=== PATIENT | female | born 1945 | race Caucasian/White ===

== ENCOUNTER 2016-05-02 14:41 | Observation (INO) ==
--- NOTE | 2016-05-02 15:48 | Emergency Department Note ---
Disposition Clinical Impression: History of breast cancer, Abnormal chest x-ray, History of permanent cardiac pacemaker placement, Obesity, Frail elderly, Dyspnea on exertion, History of asthma, Elevated blood pressure reading, UTI (urinary tract infection) Disposition: Admitted As Inpatient Referrals: Diego Rangel CNP [Primary Care Provider] - Forms: ED Satisfaction Letter General Adult HPI - General Chief complaint: ED Shortness of Breath/Dyspnea Stated complaint: SIRIA, weakness Time Seen by Provider: 05/02/16 14:45 Source: patient Limitations: no limitations - History of Present Illness HPI Narrative: 71-year-old female reports to the emergency department complaining of dyspnea on exertion. She is being evaluated by her gluing machine adjuster who she states tells her that her shortness of breath has nothing to do with her lungs. He has a history of asthma. Patient does not describe wheezing or upper respiratory symptoms. She had an outpatient echocardiogram a few days ago which shows slight diastolic dysfunction with an EF of 65%. The patient denies any previous coronary artery disease, she has a history of pacemaker placement, a remote stress test was reportedly negative. The patient does have a history of DVT but is currently not anticoagulated. There is no history of previous PE she is a breast cancer patient. The patient denies diabetes or hypercholesterolemia or hypertension. She is a nonsmoker. She describes recurrent dyspnea on exertion. There is no history of leg swelling or pain or syncope. She has no history of CHF treatment or therapy she does not take diuretic medication. She denies any significant anxiety. Acute back pain fall or injury. The patient reports she thinks she might have a urinary tract infection. There is no history of flank or back pain. Onset (ago): day(s) Pain Scale: 0 - Related Data Home Medications Medication Instructions Recorded Confirmed Montelukast [Singulair] 10 mg PO HS 10/17/14 10/04/15 Diltiazem CD (24hr) [Cardizem CD] 120 mg PO DAILY 03/11/15 10/04/15 Albuterol Sulfate [Ventolin Hfa] 18 gm IH Q6H PRN 05/04/15 10/04/15 Fluticasone/Salmeterol [Advair 1 each IH BID 08/08/15 10/04/15 250-50 Diskus] Levothyroxine [Synthroid] 25 mcg PO DAILY 10/04/15 10/04/15 Nitrofurantoin (BID) [Macrobid] 100 mg PO BID 12/14/15 12/14/15 Allergies Allergy/AdvReac Type Severity Reaction Status Date / Time cephalexin [From Keflex] Allergy Hives Verified 03/01/16 07:34 codeine Allergy Hives Verified 03/01/16 07:34 Sulfa (Sulfonamide Allergy Hives Verified 03/01/16 07:34 Antibiotics) levofloxacin [From Levaquin] AdvReac Nausea Verified 03/01/16 07:34 nitrofurantoin AdvReac Nausea Unverified 03/01/16 07:34 [From Macrobid] All systems ED: reviewed and negative except as stated. Past Medical History - Past Medical History Medical history: Reports: arthritis, asthma, kidney stones, thyroid disease, other Surgical history: Reports: pacemaker/AICD Psychiatric history: Reports: no psych history STITCHING MACHINE OPERATOR history: Reports: no STITCHING MACHINE OPERATOR history - Social History Smoking Status: Never smoker Smokeless Tobacco Status: No Alcohol use: Reports: none Drug use: Reports: none Physical Exam - General Limitations: no limitations General appearance: alert, in no apparent distress - Head Head exam: atraumatic, normocephalic, normal inspection - Eye Eye exam: Present: normal appearance, PERRL, EOMI - ENT ENT exam: normal exam, normal oropharynx, mucous membranes moist, TM's normal bilaterally, normal external ear exam - Neck Neck exam: Present: normal inspection, full ROM, trachea midline - Chest Chest inspection: Present: symmetric chest wall rise. Absent: tenderness - Respiratory Respiratory exam: Present: normal lung sounds bilaterally. Absent: respiratory distress - Abdominal Exam Abdominal exam: Present: soft, Non-Tender. Absent: tenderness, distention, guarding, rebound, rigidity, normal bowel sounds, pulsatile mass - Extremities Exam Extremities exam: Present: normal inspection, full ROM, normal capillary refill. Absent: tenderness, pedal edema, joint swelling, calf tenderness - Expanded Lower Extremity Exam Lower leg exam: Absent: Homans' sign Neurovascular/Tendon exam: Absent: motor deficit, sensory deficit, tendon deficit, extremity cold to touch, pallor - Back Exam Back exam: Present: normal inspection, full ROM. Absent: tenderness, CVA tenderness (R), CVA tenderness (L), vertebral tenderness - Neurological Exam Neurological exam: Present: alert, oriented X3, CN II-XII intact. Absent: motor sensory deficit - Psychiatric Psychiatric exam: Present: normal affect, normal mood - Skin Skin exam: Present: warm, dry, intact, normal color. Absent: rash, cyanosis, diaphoresis, erythema, pallor, mottled Course Vital Signs Temperature 98 F 05/02/16 14:44 Pulse Rate 68 05/02/16 14:44 Respiratory Rate 18 05/02/16 14:44 Blood Pressure 146/89 05/02/16 14:44 O2 Sat by Pulse Oximetry 98 05/02/16 14:44 Temperature 98 F 05/02/16 14:44 Pulse Rate 79 05/02/16 18:30 Respiratory Rate 18 05/02/16 18:30 Blood Pressure 135/77 05/02/16 18:30 O2 Sat by Pulse Oximetry 100 05/02/16 18:30 Oxygen Delivery Oxygen Delivery Room Air Medical Decision Making - MDM Narrative Medical decision making narrative: He patient is elderly, somewhat obese, and has developed progressive dyspnea on exertion over the last 2 weeks or so per her history and per her male companions history. The patient states she gets incredibly short of breath when walking even short distances. The patient's echocardiogram was unrevealing , EKG today is negative, troponin negative, d-dimer elevated, she has a history of breast cancer, CTA negative for acute disease. The patient is not wheezing she states her gluing machine adjuster reports that her dyspnea is not from her lungs. She has not had a stress test for several years. She does not relate a history of hyperlipidemia or hypertension or diabetes or previous CAD. But she does give a history of a fairly rapid progressive decline in her exercise tolerance. She ate she has not been anxious. Based on her symptomatology which seems to be significant, and there is a consideration for potential anginal equivalent. I have consulted the hospitalist on-call. The patient was given an aspirin. It may be prudent to observe the patient and perhaps evaluate her coronary flow status. The patient is agreeable. - Lab Data Lab results reviewed: Yes I reviewed the patient's lab results. Result diagrams: 05/02/16 16:46 05/02/16 16:46 Lab Results 05/02/16 05/02/16 05/02/16 Range/Units 16:46 16:46 16:46 WBC 5.0 (4.3-11.1) K/mcL RBC 4.52 (3.82-4.97) M/mcL Hgb 13.5 (11.5-15.4) g/dL Hct 41.4 (35.3-44.9) % MCV 91.6 (83.0-100.0) fL MCH 29.9 (28.0-33.3) pg MCHC 32.6 (31.6-35.5) g/dL RDW 13.3 (11.5-14.5) % Plt Count 293 (140-400) K/mcL MPV 9.2 L (9.4-12.4) fL Immature Gran % 0.2 (0-4) % Seg Neutrophils % 46.0 % Lymphocytes % 40.0 % Monocytes % 9.4 % Eosinophils % 3.6 % Basophils % 0.8 % Neutrophils # 2.3 (1.6-8.9) K/mcL Lymphocytes # 2.0 (0.6-4.6) K/mcL Monocytes # 0.5 (0.0-1.3) K/mcL Eosinophils # 0.2 (0.0-0.6) K/mcL Basophils # 0.0 (0.0-0.2) K/mcL PT (9.4-12.1) Seconds INR APTT (26.0-36.0) Seconds D-Dimer (0-500) ng/mLFEU Sodium 141 (136-145) mEq/L Potassium 4.5 (3.5-4.5) mEq/L Chloride 111 H (98-109) mEq/L Carbon Dioxide 22 (19-29) mEq/L BUN 13 (7-20) mg/dL Creatinine 0.87 (0.57-1.11) mg/dL Est GFR ( Amer) > 60 (> 60) Est GFR (Non-Af Amer) > 60 (> 60) BUN/Creatinine Ratio 15 (6-26) Glucose 89 (70-99) mg/dL Calculated Osmolality 292 (280-300) Lactic Acid (0.5-2.2) mmol/L Calcium 9.5 (8.6-10.8) mg/dL Total Bilirubin 0.5 (0.2-1.2) mg/dL Direct Bilirubin 0.2 (0.0-0.5) mg/dL Indirect Bilirubin 0.3 (0.0-1.2) mg/dL AST 15 (5-34) Units/L ALT 9 (0-55) Units/L Alkaline Phosphatase 69 (38-126) Units/L Troponin I 0.00 (0-0.03) ng/mL B-Natriuretic Peptide (0-100) pg/mL Serum Total Protein 6.6 (6.0-8.3) g/dL Albumin 3.6 (3.5-5.0) g/dL Globulin 3.0 (2.4-3.5) g/dL Albumin/Globulin Ratio 1.2 (1.1-2.2) Urine Color (Yellow) Urine Clarity (Clear) Urine pH (5.0-8.0) pH Units Ur Specific Corona (1.010-1.025) Urine Protein (Neg-Trace) mg/dL Urine Glucose (UA) (Normal) mg/dL Urine Ketones (Negative) mg/dL Urine Blood (Negative) Urine Nitrite (Negative) Urine Bilirubin (Negative) Urine Urobilinogen (Normal) mg/dL Ur Leukocyte Esterase (Negative) Urine Microscopic RBC (0-3) per hpf Urine Microscopic WBC (0-3) per hpf Ur Squamous Epith Cells (None-Few) per lpf Urine Bacteria (None-Few) per hpf Hyaline Casts (None-Few) per lpf Ur Culture Indicated? (NO) 05/02/16 05/02/16 05/02/16 Range/Units 16:46 16:46 16:46 WBC (4.3-11.1) K/mcL RBC (3.82-4.97) M/mcL Hgb (11.5-15.4) g/dL Hct (35.3-44.9) % MCV (83.0-100.0) fL MCH (28.0-33.3) pg MCHC (31.6-35.5) g/dL RDW (11.5-14.5) % Plt Count (140-400) K/mcL MPV (9.4-12.4) fL Immature Gran % (0-4) % Seg Neutrophils % % Lymphocytes % % Monocytes % % Eosinophils % % Basophils % % Neutrophils # (1.6-8.9) K/mcL Lymphocytes # (0.6-4.6) K/mcL Monocytes # (0.0-1.3) K/mcL Eosinophils # (0.0-0.6) K/mcL Basophils # (0.0-0.2) K/mcL PT 10.7 (9.4-12.1) Seconds INR 1.0 APTT 28.1 (26.0-36.0) Seconds D-Dimer 981 H (0-500) ng/mLFEU Sodium (136-145) mEq/L Potassium (3.5-4.5) mEq/L Chloride (98-109) mEq/L Carbon Dioxide (19-29) mEq/L BUN (7-20) mg/dL Creatinine (0.57-1.11) mg/dL Est GFR ( Amer) (> 60) Est GFR (Non-Af Amer) (> 60) BUN/Creatinine Ratio (6-26) Glucose (70-99) mg/dL Calculated Osmolality (280-300) Lactic Acid 1.2 (0.5-2.2) mmol/L Calcium (8.6-10.8) mg/dL Total Bilirubin (0.2-1.2) mg/dL Direct Bilirubin (0.0-0.5) mg/dL Indirect Bilirubin (0.0-1.2) mg/dL AST (5-34) Units/L ALT (0-55) Units/L Alkaline Phosphatase (38-126) Units/L Troponin I (0-0.03) ng/mL B-Natriuretic Peptide 23 (0-100) pg/mL Serum Total Protein (6.0-8.3) g/dL Albumin (3.5-5.0) g/dL Globulin (2.4-3.5) g/dL Albumin/Globulin Ratio (1.1-2.2) Urine Color (Yellow) Urine Clarity (Clear) Urine pH (5.0-8.0) pH Units Ur Specific Corona (1.010-1.025) Urine Protein (Neg-Trace) mg/dL Urine Glucose (UA) (Normal) mg/dL Urine Ketones (Negative) mg/dL Urine Blood (Negative) Urine Nitrite (Negative) Urine Bilirubin (Negative) Urine Urobilinogen (Normal) mg/dL Ur Leukocyte Esterase (Negative) Urine Microscopic RBC (0-3) per hpf Urine Microscopic WBC (0-3) per hpf Ur Squamous Epith Cells (None-Few) per lpf Urine Bacteria (None-Few) per hpf Hyaline Casts (None-Few) per lpf Ur Culture Indicated? (NO) 05/02/16 Range/Units 17:00 WBC (4.3-11.1) K/mcL RBC (3.82-4.97) M/mcL Hgb (11.5-15.4) g/dL Hct (35.3-44.9) % MCV (83.0-100.0) fL MCH (28.0-33.3) pg MCHC (31.6-35.5) g/dL RDW (11.5-14.5) % Plt Count (140-400) K/mcL MPV (9.4-12.4) fL Immature Gran % (0-4) % Seg Neutrophils % % Lymphocytes % % Monocytes % % Eosinophils % % Basophils % % Neutrophils # (1.6-8.9) K/mcL Lymphocytes # (0.6-4.6) K/mcL Monocytes # (0.0-1.3) K/mcL Eosinophils # (0.0-0.6) K/mcL Basophils # (0.0-0.2) K/mcL PT (9.4-12.1) Seconds INR APTT (26.0-36.0) Seconds D-Dimer (0-500) ng/mLFEU Sodium (136-145) mEq/L Potassium (3.5-4.5) mEq/L Chloride (98-109) mEq/L Carbon Dioxide (19-29) mEq/L BUN (7-20) mg/dL Creatinine (0.57-1.11) mg/dL Est GFR ( Amer) (> 60) Est GFR (Non-Af Amer) (> 60) BUN/Creatinine Ratio (6-26) Glucose (70-99) mg/dL Calculated Osmolality (280-300) Lactic Acid (0.5-2.2) mmol/L Calcium (8.6-10.8) mg/dL Total Bilirubin (0.2-1.2) mg/dL Direct Bilirubin (0.0-0.5) mg/dL Indirect Bilirubin (0.0-1.2) mg/dL AST (5-34) Units/L ALT (0-55) Units/L Alkaline Phosphatase (38-126) Units/L Troponin I (0-0.03) ng/mL B-Natriuretic Peptide (0-100) pg/mL Serum Total Protein (6.0-8.3) g/dL Albumin (3.5-5.0) g/dL Globulin (2.4-3.5) g/dL Albumin/Globulin Ratio (1.1-2.2) Urine Color Yellow (Yellow) Urine Clarity Clear (Clear) Urine pH 7.5 (5.0-8.0) pH Units Ur Specific Corona 1.012 (1.010-1.025) Urine Protein Negative (Neg-Trace) mg/dL Urine Glucose (UA) Normal (Normal) mg/dL Urine Ketones Negative (Negative) mg/dL Urine Blood Negative (Negative) Urine Nitrite Positive A (Negative) Urine Bilirubin Negative (Negative) Urine Urobilinogen Normal (Normal) mg/dL Ur Leukocyte Esterase Large H (Negative) Urine Microscopic RBC 5-15 H (0-3) per hpf Urine Microscopic WBC 30-50 H (0-3) per hpf Ur Squamous Epith Cells Moderate H (None-Few) per lpf Urine Bacteria Many H (None-Few) per hpf Hyaline Casts None Seen (None-Few) per lpf Ur Culture Indicated? YES A (NO) - Radiology Data Radiology results reviewed: Yes I reviewed the patient's radiology results.
[2016-05-02 16:53] LABS: Basophils % 0.8 %; Eosinophils # 0.2 K/mcL (0.0-0.6); Eosinophils % 3.6 %; Hematocrit 41.4 % (35.3-44.9); Hemoglobin 13.5 g/dL (11.5-15.4); Immature Granulocytes % 0.2 % (0-4); Mean Corpuscular HGB Conc 32.6 g/dL (31.6-35.5); Mean Corpuscular Hemoglobin 29.9 pg (28.0-33.3); Mean Corpuscular Volume 91.6 fL (83.0-100.0); Mean Platelet Volume 9.2 fL (9.4-12.4); Monocytes # 0.5 K/mcL (0.0-1.3); Monocytes % 9.4 %; Neutrophils # 2.3 K/mcL (1.6-8.9); Platelet Count 293 K/mcL (140-400); Red Blood Count 4.52 M/mcL (3.82-4.97); Red Cell Distribution Width 13.3 % (11.5-14.5)
[2016-05-02 17:00] LABS: Prothrombin Time 10.7 Seconds (9.4-12.1)
[2016-05-02 17:02] LABS: Activated Partial Thrombo Time 28.1 Seconds (26.0-36.0)
[2016-05-02 17:11] LABS: Alanine Aminotransferase 9 Units/L (0-55); Albumin 3.6 g/dL (3.5-5.0); Albumin/Globulin Ratio 1.2 (1.1-2.2); Alkaline Phosphatase 69 Units/L (38-126); Aspartate Amino Transferase 15 Units/L (5-34); BUN/Creatinine Ratio 15 (6-26); Bilirubin,Direct 0.2 mg/dL (0.0-0.5); Bilirubin,Indirect 0.3 mg/dL (0.0-1.2); Bilirubin,Total 0.5 mg/dL (0.2-1.2); Blood Urea Nitrogen 13 mg/dL (7-20); Calcium 9.5 mg/dL (8.6-10.8); Carbon Dioxide 22 mEq/L (19-29); Chloride 111 mEq/L (98-109); Glucose 89 mg/dL (70-99); Osmolality,Calculated 292 (280-300); Potassium 4.5 mEq/L (3.5-4.5); Sodium 141 mEq/L (136-145); Total Protein 6.6 g/dL (6.0-8.3); eGFR For African Americans > 60 (> 60); eGFR For Non-African Americans > 60 (> 60)
[2016-05-02 17:11] LABS: Bilirubin,Urine Negative (Negative); Blood,Urine Negative (Negative); Clarity,Urine Clear (Clear); Color,Urine Yellow (Yellow); Glucose,Urine (UA) Normal (Normal); Ketones,Urine Negative (Negative); Leukocyte Esterase,Urine Large (Negative); Nitrite,Urine Positive (Negative); PH,Urine 7.5 pH Units (5.0-8.0); Protein,Urine Negative (Neg-Trace); Specific Gravity,Urine 1.012 (1.010-1.025); Urobilinogen,Urine Normal (Normal)
[2016-05-02 17:12] LABS: Bacteria,Urine Many per hpf (None-Few); Hyaline Casts,Urine None Seen per lpf (None-Few); Squamous Epithelial Cell,Urine Moderate per lpf (None-Few); WBC,Urine 30-50 per hpf (0-3)
[2016-05-02] MEDS ORDERED: Aspirin 325 MG TABLET PO ONE (19:47)
[2016-05-02] MEDS ORDERED: Ondansetron 4 MG/2 ML VIAL IVP PRN (22:12)
[2016-05-03 04:14] LABS: Basophils % 0.6 %; Eosinophils # 0.2 K/mcL (0.0-0.6); Eosinophils % 3.4 %; Hematocrit 40.9 % (35.3-44.9); Hemoglobin 13.5 g/dL (11.5-15.4); Lymphocytes # 2.6 K/mcL (0.6-4.6); Lymphocytes % 41.2 %; Mean Corpuscular Hemoglobin 29.7 pg (28.0-33.3); Mean Corpuscular Volume 90.1 fL (83.0-100.0); Mean Platelet Volume 9.6 fL (9.4-12.4); Monocytes # 0.6 K/mcL (0.0-1.3); Monocytes % 9.3 %; Neutrophils # 2.8 K/mcL (1.6-8.9); Platelet Count 284 K/mcL (140-400); Red Blood Count 4.54 M/mcL (3.82-4.97); Red Cell Distribution Width 13.2 % (11.5-14.5); Segmented Neutrophils % 45.5 %
[2016-05-03 04:27] LABS: BUN/Creatinine Ratio 16 (6-26); Blood Urea Nitrogen 12 mg/dL (7-20); Calcium 9.3 mg/dL (8.6-10.8); Carbon Dioxide 19 mEq/L (19-29); Chloride 111 mEq/L (98-109); Glucose 85 mg/dL (70-99); Osmolality,Calculated 287 (280-300); Potassium 3.8 mEq/L (3.5-4.5); Sodium 139 mEq/L (136-145); eGFR For African Americans > 60 (> 60); eGFR For Non-African Americans > 60 (> 60)
--- NOTE | 2016-05-03 06:19 | Internal Med History&Physical ---
Date of Encounter: 05/03/16 Time of Encounter: 05:49 Assessment and Plan (1) Bronchial asthma Current visit: Yes Status: Acute albuterol inhaled as needed Qualifiers: Asthma severity: mild intermittent Asthma complication type: uncomplicated Qualified Code(s): J45.20 - Mild intermittent asthma, uncomplicated (2) Dyspnea on exertion Current visit: Yes Status: Acute possible chest pain equivalet. we will treat accordingly. Monitor on telemetry. TEND TROPONIN> Obtain stress test. (3) DVT prophylaxis Current visit: Yes Status: Acute ncourage ambulation (4) History of breast cancer Current visit: Yes Status: Acute follow-up outpatient with mammogram. (5) History of permanent cardiac pacemaker placement Current visit: Yes Status: Acute Internal Medicine - H&P: HPI Chief complaint: dyspnea on exertion Admitted From: Emergency Dept Plans for Post Hospital Care: Home History of present illness: Ms. Dewey is a 71 year old female with past medical history s for asthma and hypothyroidism [facility] She reports progressive dyspnea on exertion for the last 6 weeks, more severe for the last 2 weeks. She had outpatient workup including echocardiogram and basic labs which were negative. She was evaluated by her child care associate teacher to refer the hospital. She denies associated chest pain.the course has been progressive. a 10 point review of systems was negative except as above family historywas negative for premature nary artery disease Past Med Surg Social Fam HX - Past Medical History Medical history: arthritis, asthma, kidney stones, thyroid disease, other Psychiatric history: no psych history - Past Surgical History Surgical History: pacemaker/AICD - Social History Smoking Status: Never smoker Smokeless Tobacco Status: No Alcohol use: none Drug use: none - Family History Mother Living Status: Still Living Hx Family Cancer: Yes Father Living Status: Age at : 70 Cause of : killed in accident Internal Medicine - H&P: Meds Montelukast [Singulair] 10 mg PO HS 10/17/14 [History] Diltiazem CD (24hr) [Cardizem CD] 120 mg PO DAILY 03/11/15 [History] Albuterol Sulfate [Ventolin Hfa] 18 gm IH Q6H PRN 05/04/15 [History] Fluticasone/Salmeterol [Advair 250-50 Diskus] 1 each IH BID 08/08/15 [History] Levothyroxine [Synthroid] 25 mcg PO DAILY 10/04/15 [History] Allergies cephalexin [From Keflex] Allergy (Verified 03/01/16 07:34) Hives codeine Allergy (Verified 03/01/16 07:34) Hives Sulfa (Sulfonamide Antibiotics) Allergy (Verified 03/01/16 07:34) Hives levofloxacin [From Levaquin] Adverse Reaction (Verified 03/01/16 07:34) Nausea nitrofurantoin [From Macrobid] Adverse Reaction (Verified 05/02/16 19:59) Nausea states it still makes her nauseous All Systems PM: A 10-system review of systems was performed and is negative for pertinent findings except as documented above in the HPI. - Constitutional Vitals: Temp Pulse Resp BP Pulse Ox 97.9 F 62 12 137/75 95 05/03/16 03:23 05/03/16 03:23 05/03/16 03:23 05/03/16 03:23 05/03/16 03:23 General appearance: Present: A&O X 3 - Respiratory Respiratory exam: Present: CTAB. Absent: accessory muscle use, rales, rhonchi, wheezes - Cardiovascular Cardiovascular exam: Present: RRR, +S1, +S2. Absent: diastolic murmur, gallop, rubs, systolic murmur - GI/Abdominal GI/Abdominal exam: Present: normal bowel sounds, soft, no peritoneal signs. Absent: distended, tenderness - Extremities Exam Extremities exam: Present: warm, radial pulses palpable and symetrical. Absent : calf tenderness, cyanotic, pedal edema - Skin Skin exam: Present: dry, intact Internal Med - H&P Results - Labs CBC & Chem 7: 05/03/16 03:51 05/03/16 03:51 Labs: Short CBC 05/03/16 Range/Units 03:51 WBC 6.2 (4.3-11.1) K/mcL Hgb 13.5 (11.5-15.4) g/dL Hct 40.9 (35.3-44.9) % Plt Count 284 (140-400) K/mcL Neutrophils # 2.8 (1.6-8.9) K/mcL BMP 05/03/16 03:51 Sodium 139 Potassium 3.8 Chloride 111 H Carbon Dioxide 19 BUN 12 Creatinine 0.74 Glucose 85 Calcium 9.3 Cardiac Enzymes 05/02/16 05/03/16 Range/Units 22:54 03:51 Troponin I 0.00 0.01 (0-0.03) ng/mL
[2016-05-03] MEDS ORDERED: Regadenoson 0.4 MG/5 ML SYRINGE IVP ONE (06:49)
[2016-05-03] MEDS: Diltiazem CD (24hr) 120 MG CAPSULE PO SCH (09:07)
[2016-05-03] MEDS: Levothyroxine 25 MCG TABLET PO SCH (09:07)
[2016-05-03] MEDS: Piperacillin/Tazobactam 3.375 GM in D5% in Water (Mini-Bag+) 100 ML IVPB SCH ×2 (09:39→17:16)
[2016-05-03] MEDS: Budesonide/Formoterol 80/4.5 MDI IH SCH ×2 (09:51→22:04)
[2016-05-03] MEDS ORDERED: Acetaminophen 325 MG TABLET PO PRN (10:06)
--- NOTE | 2016-05-03 11:15 | Nuclear Medicine Stress Report ---
Regadenoson Nuclear Stress Name: Glenys Dewey Date of Study: 05/03/2016 Date: 1945 Ht: 67.0 in Medical Record#: [id number] Age: 71 Wt: 235.0 lb Gender: Female Order #: [id number] Location: [facility] Room: [facility] Supervising Provider: Suhail Cortes CNP Reading Physician: Gurmeet Mark DO, FACKristal, SUZY ADHIKARI Ordering Physician: China Menon CNP Primary Care Physician: Krysta Rangel CNP Stress Technologist: Salma Blair STEAM TANK OPERATOR, CCT Sail Repair Person: Krysta Shaw Indications: Chest Pain Impression: Pharmacologic stress ECG is negative for ischemia at level of heart rate achieved. Gated EF = 71%. Perfusion imaging was negative for ischemia or infarct. Stress Test Summary: Stress Test Type: Pharmacologic Regadenoson 0.4mg/5ml given IV Baseline Information: Initial Heart Rate: 77 Blood Pressure: 134/84 Stress Information: Test Terminated Due to (primary): As per protocol Maximum Blood Pressure: 128/68 Maximum Heart Rate: 121 Percent Maximum Heart Rate Achieved: 80 Double Product: [id number] METS Reached: 1 Symptoms: Shortness of breath, No chest symptoms Nuclear Summary: SPECT myocardial perfusion imaging using Tc99m Sestamibi given intravenously was performed at rest and following cardiac stress testing. The resting images were obtained following initial dose of 11.3 mCi. Following stress an additional dose of 35.6 mCi was given at peak exercise or 30 seconds post regadenoson infusion. Medication Given: Time Medication Dose Units Route Findings: Stress Note * Resting ECG demonstrated normal sinus rhythm. * No baseline arrhythmias were noted. * Pharmacologic stress ECG is negative for ischemia at level of heart rate achieved. * No arrhythmias were noted during stress. * Patient had no chest pain during stress. Hemodynamic responses * Normal hemodynamic responses to pharmacologic stress. Study Quality * Study quality is average. Gated EF % * Gated EF = 71%. Left Ventricle * The left ventricle is not dilated. * LVEDV = 77 mL. NORMALS * Normal wall motion. * Normal segmental perfusion in stress. Inferior Perfusion Rest * The basal inferolateral segment shows a mild reduction in perfusion. This improves with stress imaging, which is consistent with artifact. TID * No evidence of transient ischemic dilatation. TID ratio * TID ratio = 1.33. Lung Uptake * There is no evidence of increase lung uptake. Updated by Gurmeet Mark DO, FACKristal, ONOFRE, SUZY on 05/03/2016 11:07:41 AM electronically signed on 05/03/2016 11:08:41 AM with status of Final
--- NOTE | 2016-05-03 15:30 | Internal Med Progress Note ---
Date of Encounter: 05/03/16 Time of Encounter: 13:00 - Assessment and plan (1) UTI (urinary tract infection) Current Visit: Yes Status: Acute Assessment and plan: In review of her chart, patient has had several urinary tract infections over the past year. They are all Escherichia coli except for one Enterococcus faecalis and there becoming more and more resistant. Her most recent urine culture from 11/27/15 was Escherichia coli that was only sensitive to cephalosporins, amikacin, meropenem, nitrofurantoin, and Zosyn of these, patient is allergic to most of them which leaves amikacin, meropenem, and Zosyn. She has needed IV antibiotics in the past, I suspect she may need this time around. She is also allergic to cephalosporins, sulfa, fluoroquinolones, nitrofurantoin which limits choices as well. Started Zosyn, she has had this in the past. Awaiting sensitivities. This could be playing a factor in her shortness of breath with exertion, we will continue to monitor. (2) Dyspnea on exertion Current Visit: Yes Status: Acute Assessment and plan: Acute on chronic over the past 6 weeks. Unclear causation of this time. She has been seen by her coil binder who felt this was not likely of a pulmonic etiology. Echocardiogram unrevealing with an ejection fraction of 65% with mild diastolic dysfunction. She is euvolemic on examination it does not appear fluid overloaded so diagnosis of diastolic heart failure unlikely. Her stress echo also unremarkable. Only abnormality at this point is a urinary tract infection. I do feel that her anxiety regarding her dyspnea is playing a part site started her on clonazepam but will continue to investigate other causes. ITS Impressions Chest X-Ray 05/02/16 14:49 IMPRESSION: 1. Blunting of the right lateral costophrenic angle, not appreciably changed. This is most likely related to pleural scarring and less likely a small pleural effusion. 2. No new lung infiltrate. D/ / 05/02/2016 15:11:11 Dick Staples MD / Sapphire Roberto Interpreting Provider: Dick Staples MD Chest CTA 05/02/16 17:23 IMPRESSION: No evidence of pulmonary embolism or acute pulmonary abnormality. Discoid atelectasis at the bilateral lung bases. D/ / Grupo Shepherd MD / Grupo Shepherd MD Interpreting Provider: Grupo Shepherd MD Echocardiogram from 04/30/16 impressions: LVEF 65%. Normal LV chamber size, wall thickness and function. Mild left ventricular diastolic dysfunction. Normal red ventricular structure and function. No evidence of pulmonary hypertension. No significant valvular dysfunction. Nuclear stress test impression: Pharmacologic stress ECG is negative for ischemia at level for heart rate achieved. Gated ejection fraction of 71%. Perfusion imaging was negative for ischemia or infarct. (3) Bronchial asthma Current Visit: Yes Status: Acute Assessment and plan: Patient is seen by Dr. Powers and her most recent visit was on 04/14/16. Per report in [facility], her insurance would not pay for a sleep study and patient was complaining at that time of feeling short of breath most of the time. She was also complaining of hoarseness. Her coil binder stopped her Advair, continued her Singulair, and stopped her prednisone, continued her albuterol inhaler. She had a 6 minute walk test during this visit without desaturation so the physician felt that her symptoms were not related to her lungs. He ordered a repeat echocardiogram at that time for suspicion of diastolic heart failure. He also leaned towards diagnoses of obesity and deconditioning. Patient has been increasingly more short of breath since her visit, will reinitiate her Advair. Chest x-ray negative. Chest CT revealing discoid atelectasis to bilateral lower lobes as well as calcified granulomas. These appear chronic without acute processes. She is tolerating room air. ITS Impressions Chest X-Ray 05/02/16 14:49 IMPRESSION: 1. Blunting of the right lateral costophrenic angle, not appreciably changed. This is most likely related to pleural scarring and less likely a small pleural effusion. 2. No new lung infiltrate. D/ / 05/02/2016 15:11:11 Dick Staples MD / Sapphire Roberto Interpreting Provider: Dick Staples MD Chest CTA 05/02/16 17:23 IMPRESSION: No evidence of pulmonary embolism or acute pulmonary abnormality. Discoid atelectasis at the bilateral lung bases. D/ / Grupo Shepherd MD / Grupo Shepherd MD Interpreting Provider: Grupo Shepherd MD Qualifiers: Asthma severity: mild intermittent Asthma complication type: uncomplicated Qualified Code(s): J45.20 - Mild intermittent asthma, uncomplicated (4) Anxiety about health Current Visit: Yes Status: Acute Assessment and plan: Acute on chronic. Patient endorsing several times as she is scared to that something serious is going wrong. She states that the second she starts to fill short of breath that she becomes extremely anxious. Unclear at this time if the anxiety is causing worsening of her dyspnea but strong suspicion. We will trial clonazepam twice a day and monitor her response (5) DVT prophylaxis Current Visit: Yes Status: Acute Assessment and plan: Subcutaneous Lovenox ordered (6) Elevated blood pressure reading Current Visit: Yes Status: Resolved Assessment and plan: Only one reading, we will continue to trend, no formal diagnosis of hypertension at this time. (7) History of breast cancer Current Visit: Yes Status: Chronic (8) History of permanent cardiac pacemaker placement Current Visit: Yes Status: Chronic (9) Obesity Current Visit: Yes Status: Chronic - Subjective Interval history: Patient seen and examined. On examination, patient sitting upright in bed watching television. Patient denies shortness of breath or she is at rest. She denies pain at this time. She states she is quite anxious as to what could be causing her shortness of breath with exertion. - Constitutional Vitals: Temp Pulse Resp BP Pulse Ox 97.9 F 94 16 107/65 96 05/03/16 11:37 05/03/16 11:37 05/03/16 11:37 05/03/16 11:37 05/03/16 11:37 General appearance: Present: A&O X 3, pleasant, no acute distress, answers questions appropriately - Head Head exam: Present: atraumatic, normocephalic - Eye Eye exam: Present: PERRL, conjuntiva pink, sclera anicteric Pupils: Present: PERRL - Neck Neck exam general surgery: Present: supple, trachea midline. Absent: lymphadenopathy - Respiratory Respiratory exam: Present: CTAB. Absent: accessory muscle use, decreased breath sounds, rales, respiratory distress, rhonchi, wheezes - Cardiovascular Cardiovascular exam: Present: RRR, +S1, +S2. Absent: diastolic murmur, gallop, rubs, systolic murmur - GI/Abdominal GI/Abdominal exam: Present: normal bowel sounds, soft, no peritoneal signs. Absent: distended, tenderness - Extremities Exam Extremities exam: Present: warm, radial pulses palpable and symetrical. Absent : calf tenderness, cyanotic, pedal edema - Neurological Exam Neurological exam: Present: alert, CN II-XII intact, normal gait, oriented X3, no focal deficits, strengths equal and symetr throughout. Absent: pronater drift, facial droop, speech deficit - Psychiatric Psychiatric exam: Present: anxious - Expanded Psychiatric Exam Focused psych exam: Present: perseverating, restlessness - Skin Skin exam: Present: dry, intact, pallor, warm Internal Medicine: Result - Labs CBC & Chem 7: 05/03/16 03:51 05/03/16 03:51 Labs: Short CBC 05/03/16 Range/Units 03:51 WBC 6.2 (4.3-11.1) K/mcL Hgb 13.5 (11.5-15.4) g/dL Hct 40.9 (35.3-44.9) % Plt Count 284 (140-400) K/mcL Neutrophils # 2.8 (1.6-8.9) K/mcL BMP 05/03/16 03:51 Sodium 139 Potassium 3.8 Chloride 111 H Carbon Dioxide 19 BUN 12 Creatinine 0.74 Glucose 85 Calcium 9.3 Cardiac Enzymes 05/02/16 05/03/16 Range/Units 22:54 03:51 Troponin I 0.00 0.01 (0-0.03) ng/mL - ABG Interpretation ABG results: PT/INR, D-dimer PT 10.7 Seconds (9.4-12.1) 05/02/16 16:46 D-Dimer 981 ng/mLFEU (0-500) H 05/02/16 16:46 Consult Discharge Plan - Plan Referrals: Diego Rangel CNP [Primary Care Provider] - 05/10/16 2:00 pm
[2016-05-03] MEDS: clonazePAM 0.5 MG TABLET PO SCH ×2 (17:18→20:58)
[2016-05-04] MEDS: Piperacillin/Tazobactam 3.375 GM in D5% in Water (Mini-Bag+) 100 ML IVPB SCH (04:11)
[2016-05-04] MEDS ORDERED: *HR* Enoxaparin 40 MG/0.4 ML SYRINGE SQ SCH (07:00)
[2016-05-04] MEDS ORDERED: Lidocaine -MPF 1% 5 ML AMPUL INFILT ONE (07:53)
[2016-05-04] MEDS: Levothyroxine 25 MCG TABLET PO SCH (08:04)
[2016-05-04] MEDS: Diltiazem CD (24hr) 120 MG CAPSULE PO SCH (08:04)
[2016-05-04] MEDS: clonazePAM 0.5 MG TABLET PO SCH (08:05)
[2016-05-04] MEDS: Budesonide/Formoterol 80/4.5 MDI IH SCH (08:23)
[2016-05-04 11:04] VITALS: BP 133/73
[2016-05-04] MEDS ORDERED: Piperacillin/Tazobactam 3.375 GM in D5% in Water (Mini-Bag+) 100 ML IVPB SCH (13:00)
--- NOTE | 2016-05-04 13:57 | Discharge Summary ---
Date of Encounter: 05/04/16 Time of Encounter: 09:30 - Discharge Diagnosis (1) UTI (urinary tract infection) Priority: Primary Status: Acute Comments: In review of her chart, patient has had several urinary tract infections over the past year. They are all Escherichia coli except for one Enterococcus faecalis and they're becoming more and more resistant. Urine culture from this admission is consistent with Escherichia coli with several resistances and when combined with her allergies, amikacin, meropenem and Zosyn are her only 3 options. She has tolerated Zosyn thus far in the admission will be sent home with a 10 day course. She has seen infectious disease in the past, will have her follow-up with them outpatient. (2) Dyspnea on exertion Priority: Primary Status: Acute Comments: There does not appear to be a cardiac or pulmonic etiology or dyspnea on exertion. Her anxiety was treated and her dyspnea on exertion improved greatly during this admission. She did not qualify for supplement oxygenation. Recommend continued follow-up outpatient. (3) Bronchial asthma Priority: Primary Status: Acute Comments: Patient denies shortness of breath above her normal daily discharge, follow-up outpatient with pulmonology Qualifiers: Asthma severity: mild intermittent Asthma complication type: uncomplicated Qualified Code(s): J45.20 - Mild intermittent asthma, uncomplicated (4) Anxiety about health Priority: Primary Status: Acute (5) DVT prophylaxis Priority: Primary Status: Acute Comments: Subcutaneous Lovenox while admitted (6) Elevated blood pressure reading Priority: Primary Status: Resolved Comments: Only one reading without recurrence, suspect anxiety related. No antihypertensive medications indicated at this time, recommend daily blood pressure checks at home. (7) History of breast cancer Priority: Secondary Status: Chronic (8) History of permanent cardiac pacemaker placement Priority: Secondary Status: Chronic (9) Obesity Priority: Secondary Status: Chronic - Discharge Medications Prescriptions: ClonazePAM [Klonopin] 0.25 mg PO BID PRN #10 tablet PRN Reason: Anxiety Fluticasone/Salmeterol [Advair 250-50 Diskus] 1 each IH BID #1 blst.w.dev Fmqinedurhky-Dczd-Qjwbqxbz,Iso [Zosyn 3.375 gm/50 ml Galaxy] 3.375 gm IV Q8H # 27 froz.piggy Home Medications: Montelukast [Singulair] 10 mg PO HS 10/17/14 [History] Diltiazem CD (24hr) [Cardizem CD] 120 mg PO DAILY 03/11/15 [History] Albuterol Sulfate [Ventolin Hfa] 1 puff IH Q6H PRN 05/04/15 [History] Ergocalciferol (VITAMIN D2) [Drisdol (50,000 Unit)] 50,000 unit PO QWEEK [History] Levothyroxine Sodium 112 mcg PO DAILY 05/03/16 [History] ClonazePAM [Klonopin] 0.25 mg PO BID PRN #10 tablet 05/04/16 [Rx] Fluticasone/Salmeterol [Advair 250-50 Diskus] 1 each IH BID #1 blst.w.dev [Rx] Eccunsvvpkex-Ijyp-Tfyfgxnk,Iso [Zosyn 3.375 gm/50 ml Galaxy] 3.375 gm IV Q8H # 27 froz.piggy 05/04/16 [Rx] Allergies/Adverse Reactions: Allergies cephalexin [From Keflex] Allergy (Verified 03/01/16 07:34) Hives codeine Allergy (Verified 03/01/16 07:34) Hives Sulfa (Sulfonamide Antibiotics) Allergy (Verified 03/01/16 07:34) Hives levofloxacin [From Levaquin] Adverse Reaction (Verified 03/01/16 07:34) Nausea nitrofurantoin [From Macrobid] Adverse Reaction (Verified 05/02/16 19:59) Nausea states it still makes her nauseous Procedures/tests Complete & Pending: Procedures Performed prior 72 hours Category Date Time Status NM paige perf SPECT multi [NM] Routine Exams 05/02/16 22:15 Taken SP pharm nuclear stress Routine Y 05/03/16 07:30 Completed Date of admission: 05/02/16 20:54 Primary care physician: Diego Rangel CNP Consults: 05/04/16 07:53 Consult to Invasive Line Access Team [CONS] Routine Reason for Consult: needs technician terminal and repeater IV antibiotics. Zosyn for 10 days Line Type: Midline PICC line indications: care home Med/Antibiotic 05/04/16 10:24 Consult to Invasive Line Access Team [CONS] Routine Reason for Consult: home zosyn Line Type: EPIV Discharging clinician: China Menon Anticipated date of discharge: 05/04/16 (home with IV antibiotics) - Patient Status Disposition: Home Health Service Condition: Good Functional capacity at discharge: independent ambulation Overall status at discharge: patient is back to baseline - Discharge Instructions Follow Up With: Diego Rangel CNP [Primary Care Provider] - 05/10/16 2:00 pm Joaquín Miller MD [Partnered Physician] - [facility] [Provider Group] Additional Instructions: Follow-up with primary care provider as scheduled. Follow-up with sql server architect as needed. Follow-up with infectious disease in 2-3 weeks - Diet and Activity Activity: increase activity as tolerated Diet: low salt diet Hospital course: Ms. Dewey is a 71 year old female with past medical history of asthma, hypothyroidism. Patient presented to the emergency room chief complaint progressive worsening dyspnea on exertion 6 weeks but more severe over the last 2 weeks prior to presentation. Patient had outpatient workup including echocardiogram and basic labs which were unremarkable. She was seen and evaluated by her sql server architect who sent her to the emergency department. Workup in the emergency department unremarkable. Chest x-ray and CTA negative for acute processes. Patient was admitted to the hospitalist service for further evaluation and management. Urinary tract infection noted and the patient was started on Zosyn. In review of her chart, patient has had several urinary tract infections over the past year. They are all Escherichia coli except for one Enterococcus faecalis and they're becoming more and more resistant. Urine culture revealing Escherichia coli and with the resistances and her allergies factors and, patient was left with amikacin, meropenem, and Zosyn as the options. She tolerated Zosyn while admitted and she was sent home on a 10 day course of IV Zosyn. We will have her follow up outpatient with infectious disease. Unclear whether this is a colonization versus acute infection however she was symptomatic with dysuria she was treated during this visit. Regarding the cause of her progressive worsening dyspnea on exertion, echocardiogram from 04/30/16 unremarkable with ejection fraction of 65% and mild diastolic dysfunction. Patient was euvolemic on examination drop this admission. She also had a nuclear stress test that was negative. Cardiac etiology unlikely. Regarding her asthma, she is seen by Dr. Powers who has surmised her symptoms are not consistent with pulmonic etiology. At the most recent office visit on 04/14/16, he took her off her Advair however her shortness of breath has gotten significantly worse since that times of this medication was added back into her regimen during this visit. Patient did not qualify for supplemental oxygenation. In further conversation with the patient, she was extremely anxious regarding her dyspnea on exertion and appeared to have several panic attacks while admitted. She was started on low-dose clonazepam and she was able to walk further and her shortness of breath with exertion improved greatly to the conclusion that her anxiety could potentially playing a factor in her symptoms. She was discharged home in stable condition with close outpatient follow-up with her sql server architect and infectious disease as well as her primary care provider recommended. ITS Impressions Chest X-Ray 05/02/16 14:49 IMPRESSION: 1. Blunting of the right lateral costophrenic angle, not appreciably changed. This is most likely related to pleural scarring and less likely a small pleural effusion. 2. No new lung infiltrate. D/ / 05/02/2016 15:11:11 Dick Staples MD / Sapphire Roebrto Interpreting Provider: Dick Staples MD Chest CTA 05/02/16 17:23 IMPRESSION: No evidence of pulmonary embolism or acute pulmonary abnormality. Discoid atelectasis at the bilateral lung bases. D/ / Grupo Shepherd MD / Grupo Shepherd MD Interpreting Provider: Grupo Shepherd MD Echocardiogram from 04/30/16 impressions: LVEF 65%. Normal LV chamber size, wall thickness and function. Mild left ventricular diastolic dysfunction. Normal red ventricular structure and function. No evidence of pulmonary hypertension. No significant valvular dysfunction. Nuclear stress test impression: Pharmacologic stress ECG is negative for ischemia at level for heart rate achieved. Gated ejection fraction of 71%. Perfusion imaging was negative for ischemia or infarct. - Time Spent with Patient Total time spent providing and/or coordinating discharge services: - Constitutional Vitals: Temp Pulse Resp BP Pulse Ox 97.7 F 76 15 133/73 96 05/04/16 11:03 05/04/16 11:03 05/04/16 11:03 05/04/16 11:03 05/04/16 11:03 General appearance: Present: A&O X 3, pleasant, no acute distress, answers questions appropriately - Head Head exam: Present: atraumatic, normocephalic - Eye Eye exam: Present: PERRL, conjuntiva pink, sclera anicteric Pupils: Present: PERRL - Neck Neck exam general surgery: Present: supple, trachea midline. Absent: lymphadenopathy - Respiratory Respiratory exam: Present: CTAB. Absent: accessory muscle use, rales, respiratory distress, rhonchi, wheezes - Cardiovascular Cardiovascular exam: Present: RRR, +S1, +S2. Absent: diastolic murmur, gallop, rubs, systolic murmur - GI/Abdominal GI/Abdominal exam: Present: normal bowel sounds, soft, no peritoneal signs. Absent: distended, tenderness - Extremities Exam Extremities exam: Present: warm, radial pulses palpable and symetrical. Absent : calf tenderness, cyanotic, pedal edema - Neurological Exam Neurological exam: Present: alert, CN II-XII intact, normal gait, oriented X3, no focal deficits, strengths equal and symetr throughout. Absent: pronater drift, facial droop, speech deficit - Skin Skin exam: Present: dry, intact, normal color, warm
--- NOTE | 2016-05-04 14:21 | Physician Discharge Referral ---
Home Health/Hosp Referral Info Transfer to: Home Health Attending Provider: Elias Menon CNP Provider in Charge Post Discharge: PCP - Diagnosis (1) UTI (urinary tract infection) Priority: Primary Status: Acute (2) Dyspnea on exertion Priority: Primary Status: Acute (3) Bronchial asthma Priority: Primary Status: Acute (4) Anxiety about health Priority: Primary Status: Acute (5) DVT prophylaxis Priority: Primary Status: Acute (6) Elevated blood pressure reading Priority: Primary Status: Resolved (7) History of breast cancer Priority: Secondary Status: Chronic (8) History of permanent cardiac pacemaker placement Priority: Secondary Status: Chronic (9) Obesity Priority: Secondary Status: Chronic - Respiratory Orders Smoking Cessation: Smoking cessation has been advised. For more information, call the [employer] Quit Line at 4-001-INXZ-NOW. - Diet/Nutrition Diet/Nutrition Orders: No Added Salt (REJI) - Activity Activity Orders: Up ad lidya - Services Needed Following services are medically necessary services: Nursing, Home Infusion - Transfer Medications Prescriptions: ClonazePAM [Klonopin] 0.25 mg PO BID PRN #10 tablet PRN Reason: Anxiety Fluticasone/Salmeterol [Advair 250-50 Diskus] 1 each IH BID #1 blst.w.dev Czqyqoxfnqmu-Janf-Dcddqswp,Iso [Zosyn 3.375 gm/50 ml Galaxy] 3.375 gm IV Q8H # 27 froz.piggy Home Medications: Montelukast [Singulair] 10 mg PO HS 10/17/14 [History] Diltiazem CD (24hr) [Cardizem CD] 120 mg PO DAILY 03/11/15 [History] Albuterol Sulfate [Ventolin Hfa] 1 puff IH Q6H PRN 05/04/15 [History] Ergocalciferol (VITAMIN D2) [Drisdol (50,000 Unit)] 50,000 unit PO QWEEK [History] Levothyroxine Sodium 112 mcg PO DAILY 05/03/16 [History] ClonazePAM [Klonopin] 0.25 mg PO BID PRN #10 tablet 05/04/16 [Rx] Fluticasone/Salmeterol [Advair 250-50 Diskus] 1 each IH BID #1 blst.w.dev [Rx] Crnxgcshmfpg-Fhes-Itrpbayf,Iso [Zosyn 3.375 gm/50 ml Galaxy] 3.375 gm IV Q8H # 27 caridadzaris 05/04/16 [Rx] Allergies/Adverse Reactions: Allergies cephalexin [From Keflex] Allergy (Verified 03/01/16 07:34) Hives codeine Allergy (Verified 03/01/16 07:34) Hives Sulfa (Sulfonamide Antibiotics) Allergy (Verified 03/01/16 07:34) Hives levofloxacin [From Levaquin] Adverse Reaction (Verified 03/01/16 07:34) Nausea nitrofurantoin [From Macrobid] Adverse Reaction (Verified 05/02/16 19:59) Nausea states it still makes her nauseous Certification: Further, I certify that my clinical findings support that this patient is homebound (i.e. absences from home require considerable and taxing effort and are for medical reasons or hindu services or infrequently or short duration when for other reasons) because: Homebound Reason: Patient requires assistance of a person or device to safely leave home Attestation: My signature below is to certify that this patient is under my care and that I, or nurse practitioner, or a physician's power plant assistant working with me, has a face-to -face encounter with this patient.
--- NOTE | 2016-05-04 17:51 | Electrocardiograph Report ---
[address] [address] Test Date: 2016-05-02 Pat Name: Glenys Dewey Department: 102 Room: 3B Gender: F Supervisor Nuclear Medicine: : 1945 Requested By: Shun Palumbo Order Number: [id number] Reading MD: Tabitha Beaver Measurements Intervals Walters Rate: 78 P: 36 VT: 136 QRS: 5 QRSD: 90 T: 17 QT: 331 QTc: 364 Interpretive Statements SINUS RHYTHM Electronically Signed On 05-04-2016 17:50:22 EST by Tabitha Beaver
== END 2016-05-04 19:15 | disposition home health service (06) ==
LOC: EMEROO 14:41 → 3BNU 14:41
PROVIDERS: ADMIT Family Medicine; ATTEND Nurse Practitioner Family

== ENCOUNTER 2016-11-17 16:50 | Inpatient (IN) ==
[2016-11-17] MEDS ORDERED: *HR* HYDROmorphone (PF) 1 MG/ML SYRINGE IVP ONE (16:56)
--- NOTE | 2016-11-17 17:13 | Emergency Department Note ---
START Narrative - START START: I examined this patient and my medical decision-making was reviewed with the Resident Physician. I agree with the documented findings, disposition and treatment plan as described except to the extent set forth below. right flank pain in a 71yo F will do labs and ct stone study vss
--- NOTE | 2016-11-17 17:34 | Emergency Department Note ---
Disposition Clinical Impression: Ureterolithiasis UTI (urinary tract infection) Qualifiers: Urinary tract infection type: site unspecified Hematuria presence: with hematuria Qualified Code(s): N39.0 - Urinary tract infection, site not specified Nausea and vomiting Qualifiers: Vomiting type: unspecified Vomiting Intractability: non-intractable Qualified Code(s): R11.2 - Nausea with vomiting, unspecified Disposition: Admitted As Inpatient Condition: Good Referrals: NONE,PCP [Non-Partnered Physician] - Forms: Work/School Release, ED Satisfaction Letter Abdominal Pain HPI - General Chief Complaint: ED Abdominal Pain Stated Complaint: R flank pain Time Seen by Provider: 11/17/16 16:53 Source: patient, EMS Mode of arrival: EMS Limitations: no limitations Nursing Notes Reviewed: Yes Vital Signs Reviewed: Yes - History of Present Illness HPI Narrative: 71-year-old female history of recurring UTIs and nephrolithiasis who presents to the ER via EMS due to right flank pain. She states she started having right flank pain around noon today. It was sudden onset with right-sided stabbing pain. Reports it feels like her prior kidney stones. She reports 3 of lithotripsy, extraction and stents in the past. She does follow with urology here. She denies any fevers at home. Was nauseated and had some emesis. No diarrhea. Reports abdominal pain more in the right flank. She reports dysuria and was treated for UTI roughly 1 month ago. She denies hematuria. No other complaints. Pt Subjective Complaint: flank pain Onset (ago): hour(s) Consistency: constant Location: R flank Pain Severity: moderate Pain Scale: 6 Quality: stabbing Radiation: none Migration to: no migration Improves with: nothing Worsens with: nothing Context: history of similar episodes Associated symptoms: Reports: nausea, vomiting, dysuria. Denies: diarrhea, fever, hematuria Treatments prior to arrival: none - Related Data Home Medications Medication Instructions Recorded Confirmed Montelukast [Singulair] 10 mg PO HS 10/17/14 11/17/16 Albuterol Sulfate [Ventolin Hfa] 1 puff IH Q6H PRN 05/04/15 11/17/16 Ergocalciferol (VITAMIN D2) 50,000 unit PO SA 05/03/16 11/17/16 [Drisdol (50,000 Unit)] Levothyroxine Sodium 112 mcg PO QAM 05/03/16 11/17/16 HYDROcodone/Acet 5/325 mg [[place] 1 tab PO Q6H PRN 11/17/16 11/17/16 5-325 mg] Isosorbide MONOnitrate (24 HR) 30 mg PO DAILY 11/17/16 11/17/16 [Imdur] traZODone [TraZODone] 50 mg PO HS 11/17/16 Previous Rx's Medication Instructions Recorded Fluticasone/Salmeterol [Advair 1 each IH BID #1 blst.w.dev 05/04/16 250-50 Diskus] Allergies Allergy/AdvReac Type Severity Reaction Status Date / Time cephalexin [From Keflex] Allergy Hives Verified 03/01/16 07:34 codeine Allergy Hives Verified 03/01/16 07:34 Sulfa (Sulfonamide Allergy Hives Verified 03/01/16 07:34 Antibiotics) levofloxacin [From Levaquin] AdvReac Nausea Verified 03/01/16 07:34 nitrofurantoin AdvReac Nausea Verified 05/02/16 19:59 [From Macrobid] All systems ED: reviewed and negative except as stated. Constitutional: Denies: fever Cardiovascular: Denies: chest pain Respiratory: Denies: dyspnea Gastrointestinal: Reports: abdominal pain, nausea, vomiting. Denies: diarrhea Genitourinary: Denies: dysuria, hematuria Musculoskeletal: Reports: back pain (Right flank) Abdominal Pain PMH - Past Medical History Medical history: Reports: arthritis, asthma, kidney stones, thyroid disease, other Female Surgical History: Reports: cholecystectomy, hysterectomy, knee replacement, pacemaker/AICD [employer]OR [employer] history: Reports: no [employer] history Psychiatric history: Reports: no psych history - Social History Smoking status: Never smoker Alcohol use: Reports: none Drug use: Reports: none Physical Exam - General Limitations: no limitations General appearance: alert, in distress - Head Head exam: atraumatic, normocephalic, normal inspection - Eye Eye exam: Present: normal appearance, EOMI - ENT ENT exam: normal exam - Neck Neck exam: Present: normal inspection, full ROM - Chest Chest inspection: Present: normal inspection, symmetric chest wall rise - Respiratory Respiratory exam: Present: normal lung sounds bilaterally - Cardiovascular Cardiovascular exam: Present: normal rhythm, tachycardia, normal heart sounds - Abdominal Exam Abdominal exam: Present: soft, tenderness (Moderate tenderness to palpation in the right flank. Abdomen is soft with no distention guarding or rigidity.) - Extremities Exam Extremities exam: Present: normal inspection, full ROM - Expanded Upper Extremity Exam Shoulder exam: Present: normal inspection, full ROM Arm exam: Present: normal inspection, full ROM Elbow exam: Present: normal inspection, full ROM Forearm/Wrist exam: Present: normal inspection, full ROM Hand exam: Present: normal inspection, full ROM Vascular exam: Normal: radial pulse - Expanded Lower Extremity Exam Hip/Pelvis exam: Present: normal inspection, full ROM Upper leg exam: Present: normal inspection, full ROM Knee exam: Present: normal inspection, full ROM Lower leg exam: Present: normal inspection, full ROM Ankle exam: Present: normal inspection, full ROM Foot/toe exam: Present: normal inspection, full ROM Neurovascular/Tendon exam: Absent: motor deficit, sensory deficit - Back Exam Back exam: Present: CVA tenderness (R) - Neurological Exam Neurological exam: Present: alert, other (GCS 15. Nonfocal neurologic exam.) - Psychiatric Psychiatric exam: Present: normal affect, normal mood - Skin Skin exam: Present: warm, dry, intact, normal color Course Course Narrative: Patient seen and examined. She has pain to the right flank. I reviewed and she has not had a CT scan of her abdomen and pelvis here for a few years. We will obtain a CT scan as well as labs and urinalysis. Patient given morphine, Zofran and fluids prior to arrival. We will give her a dose of Dilaudid here and reassess. - Reevaluation(s) Reevaluation #1: I discussed results of imaging with the patient. She is in agreement with staying in the hospital. - Consultations Consultation #1: I discussed this case with the on-call urologist Dr. Cruz. Discussed the patient's history CT findings labs and interventions to date. He requests to keep the patient NPO for now and will likely require ureteral stenting today. He will see the patient in consultation and admit to the hospitalist service. Vital Signs Temperature 99.2 F 11/17/16 16:51 Pulse Rate 103 11/17/16 16:51 Respiratory Rate 20 11/17/16 16:51 Blood Pressure 134/117 11/17/16 16:51 O2 Sat by Pulse Oximetry 93 11/17/16 16:51 Temperature 99.2 F 11/17/16 16:51 Pulse Rate 111 11/17/16 18:31 Respiratory Rate 16 11/17/16 18:31 Blood Pressure 134/92 11/17/16 18:31 O2 Sat by Pulse Oximetry 94 11/17/16 18:31 Oxygen Delivery Oxygen Delivery Nasal Cannula Abdominal Pain - MDM Narrative Medical decision making narrative: 71-year-old female presents to the ER due to right flank pain. Prior history of multiple kidney stones requiring extraction, lithotripsy and basket extraction. She is alert afebrile and nontoxic in appearing here. CT scan demonstrates a 9 mm stone at the mid pelvis. She demonstrates UTI on urinalysis. Case discussed with the urologist. Patient to remain nothing by mouth, admitted to the hospitalist service with urologic consultation. Patient given a dose of IV Cipro while in the department. - Lab Data Lab results reviewed: Yes I reviewed the patient's lab results. Result diagrams: 11/17/16 17:43 11/17/16 17:43 Lab Results 11/17/16 11/17/16 11/17/16 Range/Units 17:43 17:43 18:05 WBC 11.5 H (4.3-11.1) K/mcL RBC 5.03 H (3.82-4.97) M/mcL Hgb 14.9 (11.5-15.4) g/dL Hct 46.8 H (35.3-44.9) % MCV 93.0 (83.0-100.0) fL MCH 29.6 (28.0-33.3) pg MCHC 31.8 (31.6-35.5) g/dL RDW 12.8 (11.5-14.5) % Plt Count 201 (140-400) K/mcL MPV 9.6 (9.4-12.4) fL Immature Gran % 0.3 (0-4) % Seg Neutrophils % 90.6 % Lymphocytes % 6.8 % Monocytes % 1.2 % Eosinophils % 0.8 % Basophils % 0.3 % Neutrophils # 10.4 H (1.6-8.9) K/mcL Lymphocytes # 0.8 (0.6-4.6) K/mcL Monocytes # 0.1 (0.0-1.3) K/mcL Eosinophils # 0.1 (0.0-0.6) K/mcL Basophils # 0.0 (0.0-0.2) K/mcL Immature Plt Fraction 2.3 (1.1-6.1) % Sodium 138 (136-145) mEq/L Potassium 4.5 (3.5-4.5) mEq/L Chloride 108 (98-109) mEq/L Carbon Dioxide 20 (19-29) mEq/L BUN 10 (7-20) mg/dL Creatinine 0.86 (0.57-1.11) mg/dL Est GFR ( Amer) > 60 (> 60) Est GFR (Non-Af Amer) > 60 (> 60) BUN/Creatinine Ratio 12 (6-26) Glucose 78 (70-99) mg/dL Calculated Osmolality 284 (280-300) Calcium 9.6 (8.6-10.8) mg/dL Total Bilirubin 1.0 (0.2-1.2) mg/dL Direct Bilirubin 0.5 (0.0-0.5) mg/dL Indirect Bilirubin 0.5 (0.0-1.2) mg/dL AST 93 H (5-34) Units/L ALT 32 (0-55) Units/L Alkaline Phosphatase 116 (38-126) Units/L Serum Total Protein 7.3 (6.0-8.3) g/dL Albumin 3.8 (3.5-5.0) g/dL Globulin 3.5 (2.4-3.5) g/dL Albumin/Globulin Ratio 1.1 (1.1-2.2) Lipase < 10 (8-78) Units/L Urine Color Yellow (Yellow) Urine Clarity Cloudy A (Clear) Urine pH 5.5 (5.0-8.0) pH Units Ur Specific [place] 1.014 (1.010-1.025) Urine Protein 30 H (Neg-Trace) mg/dL Urine Glucose (UA) Normal (Normal) mg/dL Urine Ketones Negative (Negative) mg/dL Urine Blood Large H (Negative) Urine Nitrite Positive A (Negative) Urine Bilirubin Negative (Negative) Urine Urobilinogen Normal (Normal) mg/dL Ur Leukocyte Esterase Moderate H (Negative) Urine Microscopic RBC TNTC H (0-3) per hpf Urine Microscopic WBC 50-100 H (0-3) per hpf Ur Squamous Epith Cells Moderate H (None-Few) per lpf Urine Bacteria Many H (None-Few) per hpf Hyaline Casts Moderate H (None-Few) per lpf Ur Culture Indicated? YES A (NO) - Radiology Data Radiology results reviewed: Yes I reviewed the patient's radiology results. Abdomen/Pelvis CT 11/17/16 16:56 IMPRESSION: 1. Mild right hydronephrosis and proximal right hydroureter secondary to a 9 mm calculus at the level the mid pelvis. 2. There is gas with seen the renal collecting system on the right, concerning for a superimposed gas-forming infection within the collecting system. 3. Bilateral nephrolithiasis. D/ / Jakub Dominguez MD / Jakub Dominguez MD Interpreting Provider: Jakub Dominguez MD Janes - Janes Situation: Demographics, MOA Background: Presenting Complaint, Relevant PMH, Meds, & Allergies Assessment: Vital Signs, Course and respsone to treatment, Exam Concerns, Patient/Family Expectation, Pertinant Lab Results, Outstanding Labs Recommendation: Barrier(s) to disposition, Recommendation based on pending studies, treatments, or consults [place]illon Report Given to: Dr. Fazal Marrero Repor Time: 19:44
[2016-11-17 17:51] LABS: Basophils % 0.3 %; Eosinophils # 0.1 K/mcL (0.0-0.6); Eosinophils % 0.8 %; Hematocrit 46.8 % (35.3-44.9); Hemoglobin 14.9 g/dL (11.5-15.4); Immature Granulocytes % 0.3 % (0-4); Immature Platelets 2.3 % (1.1-6.1); Lymphocytes # 0.8 K/mcL (0.6-4.6); Lymphocytes % 6.8 %; Mean Corpuscular HGB Conc 31.8 g/dL (31.6-35.5); Mean Corpuscular Hemoglobin 29.6 pg (28.0-33.3); Mean Platelet Volume 9.6 fL (9.4-12.4); Monocytes # 0.1 K/mcL (0.0-1.3); Monocytes % 1.2 %; Neutrophils # 10.4 K/mcL (1.6-8.9); Platelet Count 201 K/mcL (140-400); Red Blood Count 5.03 M/mcL (3.82-4.97); Red Cell Distribution Width 12.8 % (11.5-14.5); Segmented Neutrophils % 90.6 %
[2016-11-17 18:05] LABS: Alanine Aminotransferase 32 Units/L (0-55); Albumin 3.8 g/dL (3.5-5.0); Albumin/Globulin Ratio 1.1 (1.1-2.2); Alkaline Phosphatase 116 Units/L (38-126); Aspartate Amino Transferase 93 Units/L (5-34); BUN/Creatinine Ratio 12 (6-26); Bilirubin,Direct 0.5 mg/dL (0.0-0.5); Bilirubin,Indirect 0.5 mg/dL (0.0-1.2); Blood Urea Nitrogen 10 mg/dL (7-20); Calcium 9.6 mg/dL (8.6-10.8); Carbon Dioxide 20 mEq/L (19-29); Chloride 108 mEq/L (98-109); Globulin 3.5 g/dL (2.4-3.5); Glucose 78 mg/dL (70-99); Osmolality,Calculated 284 (280-300); Potassium 4.5 mEq/L (3.5-4.5); Sodium 138 mEq/L (136-145); Total Protein 7.3 g/dL (6.0-8.3); eGFR For African Americans > 60 (> 60); eGFR For Non-African Americans > 60 (> 60)
[2016-11-17 18:06] LABS: Lipase < 10 Units/L (8-78)
[2016-11-17 18:21] LABS: Bilirubin,Urine Negative (Negative); Blood,Urine Large (Negative); Clarity,Urine Cloudy (Clear); Color,Urine Yellow (Yellow); Glucose,Urine (UA) Normal (Normal); Ketones,Urine Negative (Negative); Leukocyte Esterase,Urine Moderate (Negative); Nitrite,Urine Positive (Negative); PH,Urine 5.5 pH Units (5.0-8.0); Protein,Urine 30 mg/dL (Neg-Trace); Specific Gravity,Urine 1.014 (1.010-1.025); Urobilinogen,Urine Normal (Normal)
[2016-11-17 18:23] LABS: Bacteria,Urine Many per hpf (None-Few); Hyaline Casts,Urine Moderate per lpf (None-Few); RBC,Urine TNTC per hpf (0-3); Squamous Epithelial Cell,Urine Moderate per lpf (None-Few); WBC,Urine 50-100 per hpf (0-3)
--- NOTE | 2016-11-17 20:06 | Urology - Consult Note ---
Date of Encounter: 11/17/16 Time of Encounter: 20:04 - Assessment and Plan (1) UTI (urinary tract infection) Current Visit: Yes Status: Acute Assessment and plan: 71-year-old woman with a urinary tract infection and an obstructing right ureteral stone. She has been given antibiotics. We will continue this upon admission. We will need to closely follow her fever curve if she develops a fever after treatment tonight. She will be admitted to the hospitalist service. Qualifiers: Urinary tract infection type: site unspecified Hematuria presence: with hematuria Qualified Code(s): N39.0 - Urinary tract infection, site not specified; R31.9 - Hematuria, unspecified (2) Ureterolithiasis Current Visit: Yes Status: Acute Assessment and plan: 71-year-old woman with a right mid ureteral stone causing right hydroureteronephrosis as well as a urinary tract infection. I recommend proceeding with a cystoscopy and right ureteral stent placement. She was informed of the risks of the surgery which include but are not limited to bleeding, infection, injury to other structures, need for further procedures, stent irritation, and the risk of anesthesia. She is willing to proceed. Urology CN:HPI Consult date: 11/17/16 Reason for consult Urology: Other (Right ureteral stone) Requesting physician: Miquel Noble History of present illness: 71-year-old woman presents with a one-day history of right flank pain. The pain started earlier this morning and was quite severe. The pain was sharp and located in the right flank. It radiated to the right groin. She had some nausea associated with this. She denies any emesis. She was then brought to the emergency room via squad. A CT scan was performed which showed a large volume of bilateral renal stones with a right mid ureteral stone causing hydronephrosis. Her urine was concerning for infection with positive nitrite. She had an elevated white count. Her pain is improved after being in the emergency room. She did receive a dose of ciprofloxacin. Past Med Surg Social Fam HX - Past Medical History Medical history: arthritis, asthma, kidney stones, thyroid disease, other Psychiatric history: no psych history - Past Surgical History Surgical History: pacemaker/AICD - Social History Smoking Status: Never smoker Smokeless Tobacco Status: No Alcohol use: none Drug use: none - Family History Mother Living Status: Still Living Hx Family Cancer: Yes Father Living Status: Medications and Allergies Montelukast [Singulair] 10 mg PO HS 10/17/14 [History] Albuterol Sulfate [Ventolin Hfa] 1 puff IH Q6H PRN 05/04/15 [History] Ergocalciferol (VITAMIN D2) [Drisdol (50,000 Unit)] 50,000 unit PO SA 05/03/16 [ History] Levothyroxine Sodium 112 mcg PO QAM 05/03/16 [History] Fluticasone/Salmeterol [Advair 250-50 Diskus] 1 each IH BID #1 blst.w.dev [Rx] HYDROcodone/Acet 5/325 mg [[place] 5-325 mg] 1 tab PO Q6H PRN 11/17/16 [History] Isosorbide MONOnitrate (24 HR) [Imdur] 30 mg PO DAILY 11/17/16 [History] traZODone [TraZODone] 50 mg PO HS 11/17/16 [History] 3 Allergy/AdvReac Type Severity Reaction Status Date / Time cephalexin [From Keflex] Allergy Hives Verified 03/01/16 07:34 codeine Allergy Hives Verified 03/01/16 07:34 Sulfa (Sulfonamide Allergy Hives Verified 03/01/16 07:34 Antibiotics) levofloxacin [From Levaquin] AdvReac Nausea Verified 03/01/16 07:34 nitrofurantoin AdvReac Nausea Verified 05/02/16 19:59 [From Macrobid] Review of Systems - Constitutional no chills, no fever(s) - EENT Nose, mouth and throat: no dizziness - Cardiovascular no chest pain - Respiratory no dyspnea - Gastrointestinal nausea, no vomiting - Genitourinary Genitourinary: flank pain, no hematuria - Musculoskeletal no back pain - Integumentary no erythema, no rash - Neurological no weakness - Psychiatric no suicidal ideation - Hematologic/Lymphatic no easy bleeding - Allergic/Immunologic no wheezing Exam Initial Vital Signs Temp Pulse Resp BP Pulse Ox 99.2 F 103 20 134/117 93 11/17/16 16:51 11/17/16 16:51 11/17/16 16:51 11/17/16 16:51 11/17/16 16:51 - General physical appearance Present: well developed, well nourished, no distress - Eyes Absent: icteric - ENT Present: normal nares - Neck Present: trachea midline - Respiratory Present: normal respiratory effort - Cardiovascular Cardiovascular exam IM: RRR - Abdomen Abdomen: Present: soft Urology Results - Labs 11/17/16 17:43 11/17/16 17:43 Abnormal lab results WBC 11.5 K/mcL (4.3-11.1) H 11/17/16 17:43 RBC 5.03 M/mcL (3.82-4.97) H 11/17/16 17:43 Hct 46.8 % (35.3-44.9) H 11/17/16 17:43 Neutrophils # 10.4 K/mcL (1.6-8.9) H 11/17/16 17:43 AST 93 Units/L (5-34) H 11/17/16 17:43 Urine Clarity Cloudy (Clear) A 11/17/16 18:05 Urine Protein 30 mg/dL (Neg-Trace) H 11/17/16 18:05 Urine Blood Large (Negative) H 11/17/16 18:05 Urine Nitrite Positive (Negative) A 11/17/16 18:05 Ur Leukocyte Esterase Moderate (Negative) H 11/17/16 18:05 Urine Microscopic RBC TNTC per hpf (0-3) H 11/17/16 18:05 Urine Microscopic WBC 50-100 per hpf (0-3) H 11/17/16 18:05 Ur Squamous Epith Cells Moderate per lpf (None-Few) H 11/17/16 18:05 Urine Bacteria Many per hpf (None-Few) H 11/17/16 18:05 Hyaline Casts Moderate per lpf (None-Few) H 11/17/16 18:05 Ur Culture Indicated? YES (NO) A 11/17/16 18:05 All other labs normal. - Imaging CT scan - abdomen: report reviewed, image reviewed CT scan - pelvis: report reviewed, image reviewed Consult Discharge Plan - Plan Referrals: Diego Rangel, JOB INTERVIEWER [Primary Care Provider] -
[2016-11-17] MEDS ORDERED: *HR* Propofol 200 MG/20 ML VIAL IVP ONE (20:07)
[2016-11-17] MEDS ORDERED: *HR* FentaNYL (PF) 100 MCG/2 ML VIAL ONE ×2 (20:07→20:28)
[2016-11-17] MEDS ORDERED: *HR* Succinylcholine 200 MG/10 ML VIAL IVP ONE (20:08)
[2016-11-17] MEDS ORDERED: Lidocaine -MPF 2% 2 ML VIAL ONE (20:08)
[2016-11-17] MEDS ORDERED: Ondansetron 4 MG/2 ML VIAL ONE (20:08)
--- NOTE | 2016-11-17 20:13 | Anesthesia Evaluation PreOp ---
Date of Encounter: 11/17/16 Time of Encounter: 20:15 - Past History Planned Operation: Cystoscopy and Stent Cardiac History: HTN, Hyperlipidemia, Arrhythmia, Pacemaker/ICD ([facility] 3-2015 EF 60%) Pulmonary History: Asthma Other Medical History: Thyroid Anesthesia History: No Prior Anesthetic Complications : No Alcohol Use: none Drug use: none Medications and Allergies Montelukast [Singulair] 10 mg PO HS 10/17/14 [History] Albuterol Sulfate [Ventolin Hfa] 1 puff IH Q6H PRN 05/04/15 [History] Ergocalciferol (VITAMIN D2) [Drisdol (50,000 Unit)] 50,000 unit PO SA 05/03/16 [ History] Levothyroxine Sodium 112 mcg PO QAM 05/03/16 [History] Fluticasone/Salmeterol [Advair 250-50 Diskus] 1 each IH BID #1 blst.w.dev [Rx] HYDROcodone/Acet 5/325 mg [[place] 5-325 mg] 1 tab PO Q6H PRN 11/17/16 [History] Isosorbide MONOnitrate (24 HR) [Imdur] 30 mg PO DAILY 11/17/16 [History] traZODone [TraZODone] 50 mg PO HS 11/17/16 [History] 3 Allergy/AdvReac Type Severity Reaction Status Date / Time cephalexin [From Keflex] Allergy Hives Verified 03/01/16 07:34 codeine Allergy Hives Verified 03/01/16 07:34 Sulfa (Sulfonamide Allergy Hives Verified 03/01/16 07:34 Antibiotics) levofloxacin [From Levaquin] AdvReac Nausea Verified 03/01/16 07:34 nitrofurantoin AdvReac Nausea Verified 05/02/16 19:59 [From Macrobid] - Meds/Allergy Pre-op Review Medications Reviewed: Yes Allergies Reviewed: Yes Beta Blockers on Current Med List: No Anesthesia Results - Labs 11/17/16 17:43 11/17/16 17:43 - Imaging EKG: report reviewed (SR) Anesthesia Exam O2 Sat Height 1.63 m Weight 106 kg O2 Sat by Pulse Oximetry 95 O2 Sat by Pulse Oximetry 94 O2 Sat by Pulse Oximetry 95 O2 Sat by Pulse Oximetry 93 Vital Signs Temp Pulse Resp BP Pulse Ox 99.2 F 103 20 134/117 93 11/17/16 16:51 11/17/16 16:51 11/17/16 16:51 11/17/16 16:51 11/17/16 16:51 Height: 5'4 Weight: 233 lbs NPO (# of Hours): MN Pain Scale: 0 - HEENT Pupil (Motor): Pupils equal, EOMI Mallampati: II Teeth: Missing Denture Type: Upper: Partial Oral Opening: Greater than 3 - RUSSIAN LANGUAGE PROFESSOR LOC: Oriented RUSSIAN LANGUAGE PROFESSOR Motor: Normal RUE, Normal LUE, Normal RLE, Normal LLE, Normal Face RUSSIAN LANGUAGE PROFESSOR Sensory: Normal: RUE, LUE, RLE, LLE, Face - Cardiac Rhythm: Regular Murmur: None JVD: No Carotid Bruit: No - Pulmonary Breath Sounds: bilateral Clear Respiratory Effort: Symmetrical Anesthesia Assess/Plan ASA Score: 3 (Arrhythmia) Modified [place] Scale for Level of Consciousness: Cooperative, oriented, and tranquil Anesthetic Plan: General Monitoring Plan: Standard Monitors Recovery Plan: PACU (Discussed GA, agrees to proceed)
[2016-11-17] MEDS ORDERED: Famotidine 20 MG/2 ML VIAL ONE (20:19)
[2016-11-17] MEDS ORDERED: Dexamethasone 4 MG/ML VIAL ONE (20:44)
--- NOTE | 2016-11-17 21:05 | Operative Note ---
Date of procedure: 11/17/16 Pre-op diagnosis: UTI with right ureteral stone Post-op diagnosis: same Procedure: Cystoscopy, right retrograde pyelogram, right ureteral stent placement Implants: 6 [place] by 24 cm double-J stent 16 [place] Miller catheter Complications: None. Anesthesia: PRINCESS Surgeon: Tong Cruz Estimated blood loss (cc): 1 Specimen: Right renal aspirate for culture Condition: stable Disposition: PACU Procedure in Detail: Indications: Glenys is a 71-year-old woman who has a history of nephrolithiasis. She had a CT which showed a right mid ureteral stone. Her urinalysis was concerning for an infection. She elected to undergo a cystoscopy and right ureteral stent placement. She was aware of the risks of the procedure including but not limited to bleeding, infection, injury to other structures, need for further procedures, stent irritation, need for nephrostomy tube, need for open repair, risks otherwise unforeseen, and the risk of anesthesia. She is willing to proceed. Procedure in Detail: After informed consent was obtained the patient was brought back to the operating room and placed in supine position. A time out was performed. General anesthesia was administered and a laryngeal mask airway was placed. She was then placed in the lithotomy position. She was prepped and draped in the usual sterile fashion. Cystoscopy was performed. The anterior urethra was normal. There was no evidence of bladder tumors. The ureteral orifices were in the normal orthotopic position. There was no duplication of the ureteral orifices. The Zip wire was placed in the right ureteral orifice. The wire was advanced into the kidney under fluoroscopic guidance. The open-ended catheter was placed over the wire into the kidney. An aspirate of urine was obtained from the kidney. A retrograde pyelogram was performed. There was hydronephrosis. The wire was then brought up into the kidney under fluoroscopic guidance. The open ended catheter was removed. A 6 [place] by 26cm JJ stent was then placed. The dangle strings were removed. A Miller catheter was placed. The patient was then awakened from general anesthesia and brought to recovery room in good condition. All sponge, needle, and instrument counts were correct.
--- NOTE | 2016-11-17 21:13 | Anesthesia Evaluation Post Op ---
Date of Encounter: 11/17/16 Time of Encounter: 21:20 - Vital Signs Vital Signs: Vital Signs/O2 Sat/Glucose, Most Current Pulse Resp BP Pulse Ox 11/17/16 20:19 18 125/88 11/17/16 19:58 108 123/68 95 11/17/16 18:31 111 16 134/92 94 - Lungs Lungs: Clear Ascult./Percussion - Airway Airway: Non-obstructed - Cardiovascular Regular Rate - Mental Status Mental Status: Alert & Oriented, Answers Appropriately - Pain Pain Scale: 0 - Nausea Vomiting Nausea Vomiting: Not Present - Hydration Hydration: Ice chips - Discharge PostOp Status: Transfer Patient to floor
[2016-11-17] MEDS ORDERED: Naloxone 0.4 MG/ML INJ IVP PRN ×2 (21:30→21:55)
[2016-11-17] MEDS ORDERED: 0.9 % Sodium Chloride 1,000 ML IVC SCH (21:30)
[2016-11-17] MEDS ORDERED: traZODone 50 MG TABLET PO PRN (21:35)
[2016-11-17] MEDS ORDERED: *HR* HYDROcodone/Acet 5/325 mg TABLET PO PRN (21:36)
[2016-11-17] MEDS ORDERED: *HR* HYDROmorphone (PF) 1 MG/ML SYRINGE IVP PRN ×2 (21:37→21:55)
--- NOTE | 2016-11-17 21:45 | Internal Med History&Physical ---
Date of Encounter: 11/17/16 Time of Encounter: 21:43 Assessment and Plan (1) Pyelonephritis Current visit: Yes Status: Acute IV cipro, IVF, urine studies pend (2) Renal stone Current visit: No Status: Resolved d/w urology, NPO, pending stent placement (3) History of permanent cardiac pacemaker placement Current visit: No Status: Chronic stable (4) History of asthma Current visit: No Status: Acute stable Internal Medicine - H&P: HPI Chief complaint: Right side flank pain History of present illness: Ms. Dewey is a 71 year old female who presents witih acute onset Right sided flank pain since noon associated with fever/chills-rigors not improving with time. Right sided back pain, 9/10 , sharp, radiating to the front of the abdomen. Relieved with dilaudid. CT imaging found right renal stone and clinical dx of pyelonephritis. On review, she has asthma and has a pacer for hx of "skipping heart beat". CT/CT abd pelvis wo no iv no oral IMPRESSION: 1. Mild right hydronephrosis and proximal right hydroureter secondary to a 9 mm calculus at the level the mid pelvis. 2. There is gas with seen the renal collecting system on the right, concerning for a superimposed gas-forming infection within the collecting system. 3. Bilateral nephrolithiasis. Past Med Surg Social Fam HX - Past Medical History Medical history: arthritis, asthma, kidney stones, thyroid disease, other Psychiatric history: no psych history - Past Surgical History Surgical History: pacemaker/AICD - Social History Smoking Status: Never smoker Smokeless Tobacco Status: No Alcohol use: none Drug use: none - Family History Mother Living Status: Still Living Hx Family Cancer: Yes Father Living Status: Internal Medicine - H&P: Meds Montelukast [Singulair] 10 mg PO HS 10/17/14 [History] Albuterol Sulfate [Ventolin Hfa] 1 puff IH Q6H PRN 05/04/15 [History] Ergocalciferol (VITAMIN D2) [Drisdol (50,000 Unit)] 50,000 unit PO SA 05/03/16 [ History] Levothyroxine Sodium 112 mcg PO QAM 05/03/16 [History] Fluticasone/Salmeterol [Advair 250-50 Diskus] 1 each IH BID #1 blst.w.dev [Rx] HYDROcodone/Acet 5/325 mg [Barbeau 5-325 mg] 1 tab PO Q6H PRN 11/17/16 [History] Isosorbide MONOnitrate (24 HR) [Imdur] 30 mg PO DAILY 11/17/16 [History] traZODone [TraZODone] 50 mg PO HS 11/17/16 [History] 3 Allergy/AdvReac Type Severity Reaction Status Date / Time cephalexin [From Keflex] Allergy Hives Verified 03/01/16 07:34 codeine Allergy Hives Verified 03/01/16 07:34 Sulfa (Sulfonamide Allergy Hives Verified 03/01/16 07:34 Antibiotics) levofloxacin [From Levaquin] AdvReac Nausea Verified 03/01/16 07:34 nitrofurantoin AdvReac Nausea Verified 05/02/16 19:59 [From Macrobid] All Systems PM: A 10-system review of systems was performed and is negative for pertinent findings except as documented above in the HPI. Review of systems: ROS 14 point review of systems reviewed as best as possible given presentation. Pertinent positive or negative as per HPI or otherwise reviewed as negative - Constitutional Vitals: Temp Pulse Resp BP Pulse Ox 100 F H 84 20 141/90 94 11/17/16 21:36 11/17/16 21:36 11/17/16 21:36 11/17/16 21:36 11/17/16 21:36 Exam: General - AAO x 3 Psych - Appropriate affect/speech. No agitation Eyes - SHELLY. Eye lids intact. No scleral icterus Neuro - No gross peripheral or central neuro deficits with intact CN 2-12 exam Heart - Pacer pocket. Sinus. RRR. S1 and S2 present. No added HS/murmurs appreciated. No elevated JVD appreciated. Lung - Adequate air entry b/l, No crackes/wheezes appreciated GI - Soft, non-tender. No hepatosplenomegaly/ascites. BS+ - Right sided flank pain Skin - Intact. No rash/petechiae/ecchymosis. Warm extremities Internal Med - H&P Results - Labs CBC & Chem 7: 11/17/16 17:43 11/17/16 17:43
[2016-11-17] MEDS ORDERED: *HR* OxyCODONE Immed Rel 5 MG TABLET PO PRN (21:55)
[2016-11-17] MEDS ORDERED: Budesonide/Formoterol 160/4.5 MDI IH SCH (22:00)
[2016-11-17] MEDS: 0.9 % Sodium Chloride 1,000 ML IVC SCH (22:34)
[2016-11-18 05:30] LABS: Basophils % 0.1 %; Hematocrit 41.4 % (35.3-44.9); Hemoglobin 13.6 g/dL (11.5-15.4); Immature Granulocytes % 0.7 % (0-4); Lymphocytes # 0.7 K/mcL (0.6-4.6); Lymphocytes % 4.7 %; Mean Corpuscular HGB Conc 32.9 g/dL (31.6-35.5); Mean Corpuscular Hemoglobin 29.9 pg (28.0-33.3); Mean Platelet Volume 10.2 fL (9.4-12.4); Monocytes % 3.7 %; Neutrophils # 13.4 K/mcL (1.6-8.9); Platelet Count 176 K/mcL (140-400); Red Blood Count 4.55 M/mcL (3.82-4.97); Red Cell Distribution Width 12.9 % (11.5-14.5); Segmented Neutrophils % 90.8 %
[2016-11-18 05:41] LABS: BUN/Creatinine Ratio 12 (6-26); Blood Urea Nitrogen 10 mg/dL (7-20); Calcium 9.1 mg/dL (8.6-10.8); Carbon Dioxide 20 mEq/L (19-29); Chloride 109 mEq/L (98-109); Glucose 134 mg/dL (70-99); Osmolality,Calculated 287 (280-300); Sodium 138 mEq/L (136-145); eGFR For African Americans > 60 (> 60); eGFR For Non-African Americans > 60 (> 60)
[2016-11-18] MEDS ORDERED: *HR* Enoxaparin 30 MG/0.3 ML SYRINGE SQ SCH (06:00)
[2016-11-18 06:10] LABS: Monocytes # 0.5 K/mcL (0.0-1.3); Platelet Estimate Normal (Normal); Toxic Granulation Present (Not Present); Toxic Vacuolation Present (Not Present)
--- NOTE | 2016-11-18 07:45 | Urology Progress Note ---
Date of Encounter: 11/18/16 Time of Encounter: 07:44 - Assessment and Plan (1) UTI (urinary tract infection) Current Visit: Yes Status: Acute Assessment and plan: Gram stain reviewed from renal aspirate. Continue ciprofloxacin. Await final urine culture results. Afebrile overnight. D/c conklin today. Qualifiers: Urinary tract infection type: site unspecified Hematuria presence: with hematuria Qualified Code(s): N39.0 - Urinary tract infection, site not specified; R31.9 - Hematuria, unspecified (2) Ureterolithiasis Current Visit: Yes Status: Acute Assessment and plan: s/p Right ureteral stent. POD #1. 1. d/c conklin. 2. Continue stent. 3. Anticipate definitive stone treatment in 1-[address] Velasquez. Progress Note Narrative: POD #1 s/p cystoscopy and right ureteral stent placement. No fevers overnight. Objective Initial Vital Signs Temp Pulse Resp BP Pulse Ox 99.2 F 103 20 134/117 93 11/17/16 16:51 11/17/16 16:51 11/17/16 16:51 11/17/16 16:51 11/17/16 16:51 - General physical appearance Present: well developed, well nourished, no distress - Respiratory Present: normal respiratory effort - Abdomen Present: soft - Genitourinary Urine Appearance: Present: Clear, Sediment - Labs 11/18/16 05:17 11/18/16 05:17 Diabetes panel 11/18/16 Range/Units 05:17 Sodium 138 (136-145) mEq/L Potassium 5.0 H (3.5-4.5) mEq/L Chloride 109 (98-109) mEq/L Carbon Dioxide 20 (19-29) mEq/L BUN 10 (7-20) mg/dL Creatinine 0.82 (0.57-1.11) mg/dL Glucose 134 H (70-99) mg/dL Calcium 9.1 (8.6-10.8) mg/dL Calcium panel 11/18/16 Range/Units 05:17 Calcium 9.1 (8.6-10.8) mg/dL Pituitary panel 11/18/16 Range/Units 05:17 Sodium 138 (136-145) mEq/L Potassium 5.0 H (3.5-4.5) mEq/L Chloride 109 (98-109) mEq/L Carbon Dioxide 20 (19-29) mEq/L BUN 10 (7-20) mg/dL Creatinine 0.82 (0.57-1.11) mg/dL Glucose 134 H (70-99) mg/dL Calcium 9.1 (8.6-10.8) mg/dL Adrenal panel 11/18/16 Range/Units 05:17 Sodium 138 (136-145) mEq/L Potassium 5.0 H (3.5-4.5) mEq/L Chloride 109 (98-109) mEq/L Carbon Dioxide 20 (19-29) mEq/L BUN 10 (7-20) mg/dL Creatinine 0.82 (0.57-1.11) mg/dL Glucose 134 H (70-99) mg/dL Calcium 9.1 (8.6-10.8) mg/dL - VTE Documentation of Mechanical Device: Intermittent pneumatic compression device Consult Discharge Plan - Plan Referrals: Diego Rangel, JOSE ROBERTO [Primary Care Provider] -
[2016-11-18] MEDS: Budesonide/Formoterol 80/4.5 MDI IH SCH ×2 (08:15→19:55)
[2016-11-18] MEDS: 0.9 % Sodium Chloride 1,000 ML IVC SCH ×2 (08:31→17:09)
[2016-11-18] MEDS: Isosorbide MONOnitrate (24 HR) 30 MG TAB.ER.24H PO SCH (08:35)
[2016-11-18] MEDS ORDERED: Isosorbide MONOnitrate (24 HR) 30 MG TAB.ER.24H PO SCH (09:00)
--- NOTE | 2016-11-18 10:46 | Internal Med Progress Note ---
<Mary Hameed - Last Filed: 11/18/16 14:43> Date of Encounter: 11/18/16 Time of Encounter: 10:15 - Assessment and plan (1) Recurrent nephrolithiasis Current Visit: Yes Status: Acute Assessment and plan: CT scan showed Mild right hydronephrosis and proximal right hydroureter secondary to a 9 mm calculus at the level the mid pelvis. There is gas with seen the renal collecting system on the right, concerning for a superimposed gas-forming infection within the collecting system.Bilateral nephrolithiasis. Urology was consulted and placed a stent this morning. Plan: - prn pain: Oxycodone 10 mg by mouth every 6 hours, Dilaudid 0.5 mg IV every 2 hours, - prn nausea: Zofran - urine filtered (2) UTI (urinary tract infection) Current Visit: Yes Status: Acute Assessment and plan: Patient was a history of recurrent UTIs which have grown Escherichia coli and are not sensitive to Cipro. Patient's antibiotics were switched to ceftriaxone 2 g and Benadryl. Patient states that she is swelling and itching from Keflex so we will monitor for allergic reaction. Plan: - Discontinue ciprofloxacin - Add ceftriaxone 2 g IV QD (start 11/18) - Consider adding Azo tomorrow if suprapubic pain continues - urine cultures pending Qualifiers: Urinary tract infection type: site unspecified Hematuria presence: with hematuria Qualified Code(s): N39.0 - Urinary tract infection, site not specified; R31.9 - Hematuria, unspecified (3) Acute hyperkalemia Current Visit: Yes Status: Acute Assessment and plan: Hyperkalemic at 5.0. Most likely secondary to renal obstruction will follow tomorrow. (4) Sepsis Current Visit: Yes Status: Acute Assessment and plan: On initial evaluation patient had temperature of 100.7, heart rate of 111, elevated white blood cell count at 11.5, and a UTI. Patient was started on ceftriaxone 2 g PO IV. Plan: - Ceftriaxone 2g - prn Benadryl Qualifiers: Qualified Code(s): A41.9 - Sepsis, unspecified organism - Subjective Interval history: The patient is a 71-year-old female past medical history of recurrent UTIs and nephrolithiasis with 3 let us those trips disease and extraction with bypass K and stent presented to the ED with right flank pain and fevers and was admitted for 9 mm and nephrolithiasis obstructionnd UTI. Today the patient is feeling tired and has pressure/pain in her lower abdomen, denies current flank plan. When asked about her high potassium she said she ate a banana yesterday and 2 bananas the days before. New complaints of MARTINEZ, eye itching and rhinorrhea. Patient does take Zyrtec at home. Patient denies vomiting, nausea, chest pain, shortness of breath. - Constitutional Vitals: Temp Pulse Resp BP Pulse Ox 98.6 F 78 16 145/80 94 11/18/16 07:38 11/18/16 07:38 11/18/16 08:19 11/18/16 07:38 11/18/16 08:19 Exam: Constitutional: Alert, in no acute distress, well nourished, well developed. Head: Normocephalic, atraumatic, normal contour and symmetric, no masses, lesions or scars Heart: Normal, regular rate and rhythm, no murmurs Lungs: Clear to auscultation, no wheezes, rales, or rhonchi Abdomen: Diffusely tender radiating to the suprapubic area. + CVA tenderness Soft, nondistended, and no masses palpable, bowel sounds present and normal, no guarding or rigidity. Extremities: IPCD on calfs, No clubbing, cyanosis, or edema, radial pulse +2/4 , capillary refill <2sec. Skin: Skin warm and dry, no lesions, no rashes, no jaundice Neurologic: Cranial nerves II through XII grossly intact, no focal deficits, strength within normal limits in all extremities Psych: Cooperative with exam, good eye contact, cognitive function intact, judgment good insight good, speech clear, thought process logical, and goal directed Internal Medicine: Result - Labs CBC & Chem 7: 11/18/16 05:17 11/18/16 05:17 Labs: Short CBC 11/18/16 Range/Units 05:17 WBC 14.7 H (4.3-11.1) K/mcL Hgb 13.6 (11.5-15.4) g/dL Hct 41.4 (35.3-44.9) % Plt Count 176 (140-400) K/mcL Neutrophils # 13.4 H (1.6-8.9) K/mcL BMP 11/18/16 05:17 Sodium 138 Potassium 5.0 H Chloride 109 Carbon Dioxide 20 BUN 10 Creatinine 0.82 Glucose 134 H Calcium 9.1 - VTE Documentation of Mechanical Device: Intermittent pneumatic compression device Consult Discharge Plan - Plan Referrals: Diego Rangel, CHEF DE CUISINE [Primary Care Provider] - <Meir Salgado - Last Filed: 11/18/16 15:18> Date of Encounter: 11/18/16 - Constitutional Vitals: Temp Pulse Resp BP Pulse Ox 99.1 F 100 18 119/68 93 11/18/16 12:20 11/18/16 12:20 11/18/16 11:12 11/18/16 11:12 11/18/16 11:12 Internal Medicine: Result - Labs CBC & Chem 7: 11/18/16 05:17 11/18/16 05:17 Labs: Short CBC 11/18/16 Range/Units 05:17 WBC 14.7 H (4.3-11.1) K/mcL Hgb 13.6 (11.5-15.4) g/dL Hct 41.4 (35.3-44.9) % Plt Count 176 (140-400) K/mcL Neutrophils # 13.4 H (1.6-8.9) K/mcL [facility] 11/18/16 05:17 Sodium 138 Potassium 5.0 H Chloride 109 Carbon Dioxide 20 BUN 10 Creatinine 0.82 Glucose 134 H Calcium 9.1 - Attending Attestation I have independently seen and examined this patient on 11/18/16, reviewed the EMR and discussed plan of care with the patient and resident physician Patient is seen and evaluated at bedside, she denies new complains She is POD 1 s/p R ureteral placement. She is being managed for Sepsis secondary to Emphysematous Pyelonephritis, R obstructing ureterolithiasis, Morbid Obesity, HTN. Physical exam: Low grade fever 10.1, T max 100.7, not in distress, HEENT: Moist oral mucosa, Chest is CTAB, Heart sounds S1, S2 only, no m/g/r, Abdomen is benign She has R CVA tenderness. No pedal edema. Labs and Imaging reviewed: Leukocytosis is worsening, HB stable, LFT. Urine culture is pending. She has a Urine culture done 10/21/16 with E.coli which is resistant to fluoroquinolones but sensitive to penicillins/Cephalosporins. A/P: Sepsis secondary to Emphysematous Pyelonephritis, R obstructing Ureterolithiasis, Gout. D/C ciprofloxacin, Start on 2g Ceftriaxone-benefits of treatment outweight risks of skin rash at this time, give benadryl. Continue IVF hydration, Follow final urine cultures. Send Uric acid. Rest of details as in resident physician's documentation
[2016-11-18] MEDS: Acetaminophen 325 MG TABLET PO PRN (23:12)
[2016-11-19] MEDS ORDERED: 0.9 % Sodium Chloride 1,000 ML IVC ONE (00:55)
[2016-11-19 02:02] LABS: Basophils % 0.3 %; Eosinophils % 0.3 %; Hematocrit 35.5 % (35.3-44.9); Immature Granulocytes % 0.4 % (0-4); Immature Platelets 2.2 % (1.1-6.1); Lymphocytes # 1.3 K/mcL (0.6-4.6); Lymphocytes % 10.7 %; Mean Corpuscular Hemoglobin 30.5 pg (28.0-33.3); Mean Corpuscular Volume 92.4 fL (83.0-100.0); Mean Platelet Volume 9.5 fL (9.4-12.4); Monocytes # 0.9 K/mcL (0.0-1.3); Monocytes % 7.1 %; Neutrophils # 9.7 K/mcL (1.6-8.9); Platelet Count 156 K/mcL (140-400); Red Blood Count 3.84 M/mcL (3.82-4.97); Red Cell Distribution Width 13.2 % (11.5-14.5); Segmented Neutrophils % 81.2 %
[2016-11-19 02:04] LABS: Hemoglobin 11.7 g/dL (11.5-15.4)
[2016-11-19 02:15] LABS: BUN/Creatinine Ratio 14 (6-26); Blood Urea Nitrogen 12 mg/dL (7-20); Calcium 8.2 mg/dL (8.6-10.8); Carbon Dioxide 20 mEq/L (19-29); Chloride 109 mEq/L (98-109); Glucose 134 mg/dL (70-99); Osmolality,Calculated 286 (280-300); Sodium 137 mEq/L (136-145); Uric Acid 3.9 mg/dL (2.6-6.0); eGFR For African Americans > 60 (> 60); eGFR For Non-African Americans > 60 (> 60)
[2016-11-19 02:17] LABS: Potassium 3.6 mEq/L (3.5-4.5)
--- NOTE | 2016-11-19 07:17 | Urology Progress Note ---
Date of Encounter: 11/19/16 Time of Encounter: 07:15 - Assessment and Plan (1) UTI (urinary tract infection) Current Visit: Yes Status: Acute Assessment and plan: GNR seen in urine culture. Will continue IV antibiotics. Await final culture results. Qualifiers: Urinary tract infection type: site unspecified Hematuria presence: with hematuria Qualified Code(s): N39.0 - Urinary tract infection, site not specified; R31.9 - Hematuria, unspecified (2) Ureterolithiasis Current Visit: Yes Status: Acute Assessment and plan: s/p right ureteral stent. POD #2. Will treat stones as an outpatient. Progress Note Narrative: Fever overnight. GNR seen in culture. Objective Initial Vital Signs Temp Pulse Resp BP Pulse Ox 99.2 F 103 20 134/117 93 11/17/16 16:51 11/17/16 16:51 11/17/16 16:51 11/17/16 16:51 11/17/16 16:51 - General physical appearance Present: well developed, well nourished, no distress - Respiratory Present: normal respiratory effort - Abdomen Present: soft - Labs 11/19/16 01:52 11/19/16 01:52 Diabetes panel 11/19/16 Range/Units 01:52 Sodium 137 (136-145) mEq/L Potassium 3.6 D (3.5-4.5) mEq/L Chloride 109 (98-109) mEq/L Carbon Dioxide 20 (19-29) mEq/L BUN 12 (7-20) mg/dL Creatinine 0.84 (0.57-1.11) mg/dL Glucose 134 H (70-99) mg/dL Calcium 8.2 L (8.6-10.8) mg/dL Calcium panel 11/19/16 Range/Units 01:52 Calcium 8.2 L (8.6-10.8) mg/dL Pituitary panel 11/19/16 Range/Units 01:52 Sodium 137 (136-145) mEq/L Potassium 3.6 D (3.5-4.5) mEq/L Chloride 109 (98-109) mEq/L Carbon Dioxide 20 (19-29) mEq/L BUN 12 (7-20) mg/dL Creatinine 0.84 (0.57-1.11) mg/dL Glucose 134 H (70-99) mg/dL Calcium 8.2 L (8.6-10.8) mg/dL Adrenal panel 11/19/16 Range/Units 01:52 Sodium 137 (136-145) mEq/L Potassium 3.6 D (3.5-4.5) mEq/L Chloride 109 (98-109) mEq/L Carbon Dioxide 20 (19-29) mEq/L BUN 12 (7-20) mg/dL Creatinine 0.84 (0.57-1.11) mg/dL Glucose 134 H (70-99) mg/dL Calcium 8.2 L (8.6-10.8) mg/dL - VTE Documentation of Mechanical Device: Intermittent pneumatic compression device Consult Discharge Plan - Plan Referrals: Diego Rangel, JOSE ROBERTO [Primary Care Provider] -
[2016-11-19] MEDS: 0.9 % Sodium Chloride 1,000 ML IVC SCH ×2 (07:44→17:21)
[2016-11-19] MEDS: Isosorbide MONOnitrate (24 HR) 30 MG TAB.ER.24H PO SCH (07:45)
[2016-11-19] MEDS: Ondansetron 4 MG/2 ML VIAL IVP PRN ×2 (07:58→17:22)
[2016-11-19] MEDS: Acetaminophen 325 MG TABLET PO PRN ×2 (08:25→18:58)
--- NOTE | 2016-11-19 10:03 | Internal Med Progress Note ---
<Mary Hameed - Last Filed: 11/19/16 14:05> Date of Encounter: 11/19/16 Time of Encounter: 09:20 - Assessment and plan (1) Recurrent nephrolithiasis Current Visit: Yes Status: Acute Assessment and plan: CT scan showed Mild right hydronephrosis and proximal right hydroureter secondary to a 9 mm calculus at the level the mid pelvis. There is gas with seen the renal collecting system on the right, concerning for a superimposed gas-forming infection within the collecting system.Bilateral nephrolithiasis. Urology was consulted and pt is s/p stent day 2. Plan: - prn pain: Oxycodone 10 mg by mouth every 6 hours, Dilaudid 0.5 mg IV every 2 hours, - prn nausea: Zofran - urine filtered and have noticed/collected small stones. (2) Acute hyperkalemia Current Visit: Yes Status: Acute Assessment and plan: Hyperkalemic at 5.0 11/18. Most likely due to ureter obstruction. Resolved 11/19 K= 3.6. Will continue to monitor. (3) Sepsis Current Visit: Yes Status: Acute Assessment and plan: On initial evaluation patient had temperature of 100.7, heart rate of 111, elevated white blood cell count at 11.5, and a UTI. Patient was started on ceftriaxone 2 g PO IV. Patient is still having intermittent fevers and tachycardia. If fever tonight after 48 hrs of ceftriaxone will reculture. Has not had itching or swelling. Plan: - Ceftriaxone 2g - prn Benadryl - if fever reculture Qualifiers: Qualified Code(s): A41.9 - Sepsis, unspecified organism (4) Pyelonephritis Current Visit: Yes Status: Acute Assessment and plan: Patient was a history of recurrent UTIs which have grown Escherichia coli and are not sensitive to Cipro. CT of Abdomen/Pelvis showed gas with seen the renal collecting system on the right, concerning for a superimposed gas-forming infection within the collecting system. 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 Patient's antibiotics were switched to ceftriaxone 2 g and Benadryl. Patient is still having intermittent fevers and tachycardia. Has not had itching or swelling. Plan: - Discontinue ciprofloxacin - Add ceftriaxone 2 g IV QD (start 11/18) - urine cultures final pending, prelim gram negative. - Dispo: discharge home is awaiting sensitivities - Subjective Interval history: The patient is a 71-year-old female past medical history of recurrent UTIs and nephrolithiasis with 3 let us those trips disease and extraction with bypass K and stent presented to the ED with right flank pain and fevers and was admitted for 9 mm and nephrolithiasis obstructionnd UTI. Today the patient is feeling tired and has pressure/pain in her lower abdomen, denies current flank plan. Patient states that she is feeling very fatigued this morning and all she wants to do is sleep. Patient states that she is not feeling better. Patient has no new complaints. Did have one episode of nausea this morning but was resolved by Zofran. Patient denies vomiting, nausea, chest pain, shortness of breath. - Constitutional Vitals: Temp Pulse Resp BP Pulse Ox 100.4 F H 101 28 144/72 93 11/19/16 08:00 11/19/16 08:00 11/19/16 08:00 11/19/16 08:00 11/19/16 08:00 Exam: Constitutional: Alert, in no acute distress, well nourished, well developed. Head: Normocephalic, atraumatic, normal contour and symmetric, no masses, lesions or scars Heart: Normal, regular rate and rhythm, no murmurs Lungs: Clear to auscultation, no wheezes, rales, or rhonchi Abdomen: Diffusely tender radiating to the suprapubic area. + CVA tenderness Soft, nondistended, and no masses palpable, bowel sounds present and normal, no guarding or rigidity. Extremities: IPCD on calfs, No clubbing, cyanosis, or edema, radial pulse +2/4 , capillary refill <2sec. Skin: Skin warm and dry, no lesions, no rashes, no jaundice Neurologic: Cranial nerves II through XII grossly intact, no focal deficits, strength within normal limits in all extremities Psych: Cooperative with exam, good eye contact, cognitive function intact, judgment good insight good, speech clear, thought process logical, and goal directed Internal Medicine: Result - Labs CBC & Chem 7: 11/19/16 01:52 11/19/16 01:52 Labs: Short CBC 11/19/16 Range/Units 01:52 WBC 11.9 H (4.3-11.1) K/mcL Hgb 11.7 D (11.5-15.4) g/dL Hct 35.5 (35.3-44.9) % Plt Count 156 (140-400) K/mcL Neutrophils # 9.7 H (1.6-8.9) K/mcL [facility] 11/19/16 01:52 Sodium 137 Potassium 3.6 D Chloride 109 Carbon Dioxide 20 BUN 12 Creatinine 0.84 Glucose 134 H Calcium 8.2 L - VTE Documentation of Mechanical Device: Intermittent pneumatic compression device Consult Discharge Plan - Plan Referrals: Diego Rangel, MANAGER [employer] [Primary Care Provider] - <Meir Salgado T - Last Filed: 11/19/16 14:28> Date of Encounter: 11/19/16 - Constitutional Vitals: Temp Pulse Resp BP Pulse Ox 98.3 F 84 18 154/79 93 11/19/16 14:06 11/19/16 14:06 11/19/16 14:06 11/19/16 14:06 11/19/16 14:06 Internal Medicine: Result - Labs CBC & Chem 7: 11/19/16 01:52 11/19/16 01:52 Labs: Short CBC 11/19/16 Range/Units 01:52 WBC 11.9 H (4.3-11.1) K/mcL Hgb 11.7 D (11.5-15.4) g/dL Hct 35.5 (35.3-44.9) % Plt Count 156 (140-400) K/mcL Neutrophils # 9.7 H (1.6-8.9) K/mcL [facility] 11/19/16 01:52 Sodium 137 Potassium 3.6 D Chloride 109 Carbon Dioxide 20 BUN 12 Creatinine 0.84 Glucose 134 H Calcium 8.2 L - Attending Attestation I have independently seen and examined this patient on 11/19/16. I have reviewed the EMR. Plan of management has been discussed with the patient and resident. She is being managed for Sepsis secondary to Emphysematous Pyelonephritis, R obstructing ureterolithiasis, Morbid Obesity, HTN. Patient is seen and evaluated at bedside, she does not feel well today. She had fevers overnight, T-max 101.3, she also had tachycardia. She has had one dose of ceftriaxone at that time. She denies hives or rash or itching to ceftriaxone. Urine culture from this admission and renal aspirate growing GNR She is POD 2 s/p R ureteral placement. Physical exam: Febrile, not in distress, HEENT: Moist oral mucosa, Chest is CTAB , Heart sounds S1, S2 only, no m/g/r, Abdomen is benign She has R CVA tenderness. No pedal edema. No skin rash. Labs and Imaging reviewed: Leukocytosis is improving. WBC 92352([id number]/), HB stable, Urine and renal aspirate culture GNR. She has a Urine culture done 10/21/16 with E.coli which is resistant to fluoroquinolones but sensitive to penicillins/Cephalosporins. A/P: Sepsis secondary to Emphysematous Pyelonephritis, R obstructing Ureterolithiasis , Gout. -Continue Ceftriaxone 2g daily -Continue IVF hydration -Follow final urine and renal aspirate culture -If patient develops fever after 48 hrs of appropriate antibiotics, we will re- culture. *High risk due to diagnosis of sepsis Rest of details as in resident physician's documentation
[2016-11-19] MEDS: Budesonide/Formoterol 80/4.5 MDI IH SCH ×2 (10:54→22:44)
[2016-11-20] MEDS: 0.9 % Sodium Chloride 1,000 ML IVC SCH (03:40)
[2016-11-20 06:11] LABS: Basophils % 0.1 %; Eosinophils # 0.1 K/mcL (0.0-0.6); Eosinophils % 0.9 %; Hematocrit 36.9 % (35.3-44.9); Hemoglobin 11.8 g/dL (11.5-15.4); Immature Granulocytes % 0.4 % (0-4); Lymphocytes # 1.1 K/mcL (0.6-4.6); Lymphocytes % 11.6 %; Mean Corpuscular Hemoglobin 29.2 pg (28.0-33.3); Mean Corpuscular Volume 91.3 fL (83.0-100.0); Mean Platelet Volume 9.6 fL (9.4-12.4); Monocytes # 0.7 K/mcL (0.0-1.3); Monocytes % 7.9 %; Neutrophils # 7.3 K/mcL (1.6-8.9); Platelet Count 155 K/mcL (140-400); Red Blood Count 4.04 M/mcL (3.82-4.97); Segmented Neutrophils % 79.1 %
[2016-11-20] MEDS: Ondansetron 4 MG/2 ML VIAL IVP PRN (06:17)
[2016-11-20] MEDS: Acetaminophen 325 MG TABLET PO PRN ×2 (06:18→20:25)
[2016-11-20 06:23] LABS: BUN/Creatinine Ratio 12 (6-26); Blood Urea Nitrogen 8 mg/dL (7-20); Calcium 8.6 mg/dL (8.6-10.8); Carbon Dioxide 23 mEq/L (19-29); Chloride 108 mEq/L (98-109); Glucose 95 mg/dL (70-99); Osmolality,Calculated 282 (280-300); Potassium 3.6 mEq/L (3.5-4.5); Sodium 137 mEq/L (136-145); eGFR For African Americans > 60 (> 60); eGFR For Non-African Americans > 60 (> 60)
[2016-11-20] MEDS: Budesonide/Formoterol 80/4.5 MDI IH SCH ×2 (08:06→20:00)
--- NOTE | 2016-11-20 08:43 | Urology Progress Note ---
Date of Encounter: 11/20/16 Time of Encounter: 08:40 - Assessment and Plan (1) UTI (urinary tract infection) Current Visit: Yes Status: Acute Assessment and plan: 71-year-old woman with a urinary tract infection and a ureteral stone status post right ureteral stent placement. Postoperative day #3. Enterococcus is growing out of a culture from her right kidney's urine. She has been on ceftriaxone. Typically, enterococcus is not sensitive to cephalosporins. I would recommend adding vancomycin or ampicillin given that she has had continued fevers while on ceftriaxone. Qualifiers: Urinary tract infection type: site unspecified Hematuria presence: with hematuria Qualified Code(s): N39.0 - Urinary tract infection, site not specified; R31.9 - Hematuria, unspecified (2) Ureterolithiasis Current Visit: Yes Status: Acute Assessment and plan: Status post right ureteral stent placement. We will treat her stones once her infection has cleared. Progress Note Narrative: Fever yesterday afternoon. Escherichia coli is growing out of her urine culture. There is also enterococcus growing out of the urine from the kidney aspirate. She has been on ceftriaxone. Objective Initial Vital Signs Temp Pulse Resp BP Pulse Ox 99.2 F 103 20 134/117 93 11/17/16 16:51 11/17/16 16:51 11/17/16 16:51 11/17/16 16:51 11/17/16 16:51 - General physical appearance Present: well developed, well nourished, no distress - Respiratory Present: normal respiratory effort - Abdomen Present: soft - Labs 11/20/16 05:23 11/20/16 05:23 Diabetes panel 11/20/16 Range/Units 05:23 Sodium 137 (136-145) mEq/L Potassium 3.6 (3.5-4.5) mEq/L Chloride 108 (98-109) mEq/L Carbon Dioxide 23 (19-29) mEq/L BUN 8 (7-20) mg/dL Creatinine 0.68 (0.57-1.11) mg/dL Glucose 95 (70-99) mg/dL Calcium 8.6 (8.6-10.8) mg/dL Calcium panel 11/20/16 Range/Units 05:23 Calcium 8.6 (8.6-10.8) mg/dL Pituitary panel 11/20/16 Range/Units 05:23 Sodium 137 (136-145) mEq/L Potassium 3.6 (3.5-4.5) mEq/L Chloride 108 (98-109) mEq/L Carbon Dioxide 23 (19-29) mEq/L BUN 8 (7-20) mg/dL Creatinine 0.68 (0.57-1.11) mg/dL Glucose 95 (70-99) mg/dL Calcium 8.6 (8.6-10.8) mg/dL Adrenal panel 11/20/16 Range/Units 05:23 Sodium 137 (136-145) mEq/L Potassium 3.6 (3.5-4.5) mEq/L Chloride 108 (98-109) mEq/L Carbon Dioxide 23 (19-29) mEq/L BUN 8 (7-20) mg/dL Creatinine 0.68 (0.57-1.11) mg/dL Glucose 95 (70-99) mg/dL Calcium 8.6 (8.6-10.8) mg/dL - VTE Documentation of Mechanical Device: Intermittent pneumatic compression device Consult Discharge Plan - Plan Referrals: Tong Cruz MD [Partnered Physician] - Diego Rangel CNP [Primary Care Provider] -
[2016-11-20] MEDS: Isosorbide MONOnitrate (24 HR) 30 MG TAB.ER.24H PO SCH (09:44)
--- NOTE | 2016-11-20 11:37 | Internal Med Progress Note ---
Date of Encounter: 11/20/16 Time of Encounter: 11:37 - Assessment and plan (1) Sepsis Current Visit: Yes Status: Acute Assessment and plan: Tmax 101 Tachycardic on presentation, with leukocytosis and evidence of pyelonephritis Sepsis is resolving WBC is normal today D/C IVF Continue ceftriaxone Qualifiers: Qualified Code(s): A41.9 - Sepsis, unspecified organism (2) Pyelonephritis Current Visit: Yes Status: Acute Assessment and plan: Patient was a history of recurrent UTIs which have grown Escherichia coli and are not sensitive to Cipro. CT of Abdomen/Pelvis showed gas with seen the renal collecting system on the right, concerning for a superimposed gas-forming infection within the collecting system. 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 Patient's antibiotics were switched to ceftriaxone 2 g and Benadryl 11/18 Urine culture with E.coli and enterococcus Patient is improving on Ceftriaxone without adverse effects, continue same (3) Recurrent nephrolithiasis Current Visit: Yes Status: Acute Assessment and plan: CT scan showed Mild right hydronephrosis and proximal right hydroureter secondary to a 9 mm calculus at the level the mid pelvis. There is gas with seen the renal collecting system on the right, concerning for a superimposed gas-forming infection within the collecting system.Bilateral nephrolithiasis. Urology was consulted and pt is s/p stent day 3. Plan: - prn pain: Oxycodone 10 mg by mouth every 6 hours, Dilaudid 0.5 mg IV every 2 hours, - prn nausea: Zofran - urine filtered and have noticed/collected small stones. (4) Ureterolithiasis Current Visit: Yes Status: Acute Assessment and plan: As above (5) Acute hyperkalemia Current Visit: Yes Status: Resolved Assessment and plan: Resolved - Subjective Interval history: Seen and evaluated at bedside She is being managed for Sepsis secondary to Emphysematous Pyelonephritis, R obstructing ureterolithiasis, Morbid Obesity, HTN. She reports significant improvement Last fever recorded was 101 at 9/8 p.m Her urine culture and renal aspirate is growing enterococcus and E.coli(E.coli is sensitive to ceftriaxone) Her WBC has improved She is POD 3 s/p R ureteral placement. - Constitutional Vitals: Temp Pulse Resp BP Pulse Ox 98 F 73 17 128/73 93 11/20/16 10:40 11/20/16 10:40 11/20/16 10:40 11/20/16 10:40 11/20/16 10:40 General appearance: Present: A&O X 3, pleasant, no acute distress - Head Head exam: Present: atraumatic, normocephalic - Eye Eye exam: Present: PERRL, conjuntiva pink, sclera anicteric Pupils: Present: PERRL - Neck Neck exam general surgery: Present: supple, trachea midline. Absent: lymphadenopathy - Respiratory Respiratory exam: Present: CTAB. Absent: accessory muscle use, rales, rhonchi, wheezes - Cardiovascular Cardiovascular exam: Present: RRR, +S1, +S2. Absent: diastolic murmur, gallop, rubs, systolic murmur - GI/Abdominal GI/Abdominal exam: Present: normal bowel sounds, soft, no peritoneal signs. Absent: distended, tenderness - Extremities Exam Extremities exam: Present: warm, radial pulses palpable and symmetrical. Absent : calf tenderness, cyanotic, pedal edema - Back Exam Back exam: Present: CVA tenderness (R) - Neurological Exam Neurological exam: Present: alert, CN II-XII intact, oriented X3, no focal deficits. Absent: pronater drift, facial droop, speech deficit - Skin Skin exam: Present: dry, intact Internal Medicine: Result - Labs CBC & Chem 7: 11/20/16 05:23 11/20/16 05:23 Labs: Short CBC 11/20/16 Range/Units 05:23 WBC 9.2 (4.3-11.1) K/mcL Hgb 11.8 (11.5-15.4) g/dL Hct 36.9 (35.3-44.9) % Plt Count 155 (140-400) K/mcL Neutrophils # 7.3 (1.6-8.9) K/mcL BMP 11/20/16 05:23 Sodium 137 Potassium 3.6 Chloride 108 Carbon Dioxide 23 BUN 8 Creatinine 0.68 Glucose 95 Calcium 8.6 - VTE Documentation of Mechanical Device: Intermittent pneumatic compression device Consult Discharge Plan - Plan Referrals: Tong Cruz MD [Partnered Physician] - Diego Rangel CNP [Primary Care Provider] -
[2016-11-20] MEDS ORDERED: Lactulose Oral Soln 20 GM/30 ML UDC PO PRN (20:47)
[2016-11-21 04:58] LABS: Basophils % 0.3 %; Eosinophils # 0.3 K/mcL (0.0-0.6); Eosinophils % 3.3 %; Hematocrit 36.5 % (35.3-44.9); Hemoglobin 11.9 g/dL (11.5-15.4); Immature Granulocytes % 0.4 % (0-4); Lymphocytes # 1.7 K/mcL (0.6-4.6); Lymphocytes % 21.7 %; Mean Corpuscular HGB Conc 32.6 g/dL (31.6-35.5); Mean Corpuscular Hemoglobin 29.5 pg (28.0-33.3); Mean Corpuscular Volume 90.3 fL (83.0-100.0); Mean Platelet Volume 9.9 fL (9.4-12.4); Monocytes # 0.9 K/mcL (0.0-1.3); Monocytes % 10.9 %; Neutrophils # 5.1 K/mcL (1.6-8.9); Platelet Count 178 K/mcL (140-400); Red Blood Count 4.04 M/mcL (3.82-4.97); Red Cell Distribution Width 12.9 % (11.5-14.5); Segmented Neutrophils % 63.4 %
[2016-11-21 05:09] LABS: BUN/Creatinine Ratio 12 (6-26); Blood Urea Nitrogen 9 mg/dL (7-20); Calcium 8.9 mg/dL (8.6-10.8); Carbon Dioxide 23 mEq/L (19-29); Chloride 107 mEq/L (98-109); Glucose 81 mg/dL (70-99); Osmolality,Calculated 286 (280-300); Potassium 3.5 mEq/L (3.5-4.5); Sodium 139 mEq/L (136-145); eGFR For African Americans > 60 (> 60); eGFR For Non-African Americans > 60 (> 60)
--- NOTE | 2016-11-21 08:30 | Urology Progress Note ---
Date of Encounter: 11/21/16 Time of Encounter: 08:28 - Assessment and Plan (1) UTI (urinary tract infection) Current Visit: Yes Status: Acute Assessment and plan: Clinically she is improving. Urine culture is growing out Escherichia coli as well as enterococcus. Another gram-negative jewel isolate has been identified in the renal aspirate. She has been on ceftriaxone. I will defer to internal medicine regarding antibiotic choice. Qualifiers: Urinary tract infection type: site unspecified Hematuria presence: with hematuria Qualified Code(s): N39.0 - Urinary tract infection, site not specified; R31.9 - Hematuria, unspecified (2) Ureterolithiasis Current Visit: Yes Status: Acute Assessment and plan: Postoperative day #4 status post right ureteral stent placement. We will plan for definitive ureteroscopic stone extraction as an outpatient at a later date. Appreciate internal medicine support. Progress Note Narrative: 71-year-old woman status post right ureteral stent placement. Postoperative day #4. Fever curve improved. She had a low-grade temperature to 100 yesterday. She says she is feeling better. White count is normal. Objective Initial Vital Signs Temp Pulse Resp BP Pulse Ox 99.2 F 103 20 134/117 93 11/17/16 16:51 11/17/16 16:51 11/17/16 16:51 11/17/16 16:51 11/17/16 16:51 - General physical appearance Present: well developed, well nourished, no distress - Respiratory Present: normal respiratory effort - Abdomen Present: soft - Labs 11/21/16 04:06 11/21/16 04:06 Diabetes panel 11/21/16 Range/Units 04:06 Sodium 139 (136-145) mEq/L Potassium 3.5 (3.5-4.5) mEq/L Chloride 107 (98-109) mEq/L Carbon Dioxide 23 (19-29) mEq/L BUN 9 (7-20) mg/dL Creatinine 0.75 (0.57-1.11) mg/dL Glucose 81 (70-99) mg/dL Calcium 8.9 (8.6-10.8) mg/dL Calcium panel 11/21/16 Range/Units 04:06 Calcium 8.9 (8.6-10.8) mg/dL Pituitary panel 11/21/16 Range/Units 04:06 Sodium 139 (136-145) mEq/L Potassium 3.5 (3.5-4.5) mEq/L Chloride 107 (98-109) mEq/L Carbon Dioxide 23 (19-29) mEq/L BUN 9 (7-20) mg/dL Creatinine 0.75 (0.57-1.11) mg/dL Glucose 81 (70-99) mg/dL Calcium 8.9 (8.6-10.8) mg/dL Adrenal panel 11/21/16 Range/Units 04:06 Sodium 139 (136-145) mEq/L Potassium 3.5 (3.5-4.5) mEq/L Chloride 107 (98-109) mEq/L Carbon Dioxide 23 (19-29) mEq/L BUN 9 (7-20) mg/dL Creatinine 0.75 (0.57-1.11) mg/dL Glucose 81 (70-99) mg/dL Calcium 8.9 (8.6-10.8) mg/dL - VTE Documentation of Mechanical Device: Intermittent pneumatic compression device Consult Discharge Plan - Plan Referrals: Tong Cruz MD [Partnered Physician] - Diego Rangel CNP [Primary Care Provider] -
[2016-11-21] MEDS: Doxycycline 100 MG CAPSULE PO SCH ×2 (09:08→20:38)
[2016-11-21] MEDS: Isosorbide MONOnitrate (24 HR) 30 MG TAB.ER.24H PO SCH (09:09)
--- NOTE | 2016-11-21 10:44 | Internal Med Progress Note ---
Date of Encounter: 11/21/16 Time of Encounter: 12:34 - Assessment and plan (1) Sepsis Current Visit: Yes Status: Acute Assessment and plan: Tmax 101 Tachycardic on presentation, with leukocytosis and evidence of pyelonephritis Sepsis is resolving WBC is normal Continue ceftriaxone Add doxycycline for enterococcus Qualifiers: Sepsis type: Escherichia coli Qualified Code(s): A41.51 - Sepsis due to Escherichia coli [E. coli] (2) Pyelonephritis Current Visit: Yes Status: Acute Assessment and plan: Patient was a history of recurrent UTIs which have grown Escherichia coli and are not sensitive to Cipro. CT of Abdomen/Pelvis showed gas with seen the renal collecting system on the right, concerning for a superimposed gas-forming infection within the collecting system. 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 Patient's antibiotics were switched to ceftriaxone 2 g and Benadryl / Urine culture with E.coli Renal aspirate with 2 different GNR and enterococcus Await final culture report Continue Ceftriaxone and doxycycline (3) Recurrent nephrolithiasis Current Visit: Yes Status: Acute Assessment and plan: CT scan showed Mild right hydronephrosis and proximal right hydroureter secondary to a 9 mm calculus at the level the mid pelvis. There is gas with seen the renal collecting system on the right, concerning for a superimposed gas-forming infection within the collecting system.Bilateral nephrolithiasis. Urology was consulted and pt is s/p stent day 5. Plan: - prn pain: Oxycodone 10 mg by mouth every 6 hours, Dilaudid 0.5 mg IV every 2 hours, - prn nausea: Zofran - urine filtered and have noticed/collected small stones. (4) Ureterolithiasis Current Visit: Yes Status: Acute Assessment and plan: As above (5) Acute hyperkalemia Current Visit: Yes Status: Resolved Assessment and plan: Resolved - Subjective Interval history: Seen and evaluated at bedside She is being managed for Sepsis secondary to Emphysematous Pyelonephritis, R obstructing ureterolithiasis, Morbid Obesity, HTN. She reports significant improvement Last fever recorded was 100.1 11/20 She now had 3 organisms from her renal aspirate. E.coli, Enterococcus and another GNR She is POD 5 s/p R ureteral placement. Her leukocytosis has resolved and patient clinically feels improved We will add docycycline for enterococcus coverage based on sensitivity from her culture We will follow final culture - Constitutional Vitals: Temp Pulse Resp BP Pulse Ox 98.3 F 96 15 117/78 93 11/21/16 10:35 11/21/16 10:35 11/21/16 10:35 11/21/16 10:35 11/21/16 10:35 General appearance: Present: A&O X 3, pleasant, no acute distress - Head Head exam: Present: atraumatic, normocephalic - Eye Eye exam: Present: PERRL, conjuntiva pink, sclera anicteric - Neck Neck exam general surgery: Present: supple, trachea midline. Absent: lymphadenopathy - Respiratory Respiratory exam: Present: CTAB. Absent: accessory muscle use, rales, rhonchi, wheezes Additional comments: PCM on chest wall - Cardiovascular Cardiovascular exam: Present: RRR, +S1, +S2. Absent: diastolic murmur, gallop, rubs, systolic murmur - GI/Abdominal GI/Abdominal exam: Present: normal bowel sounds, soft, no peritoneal signs. Absent: distended, tenderness - Extremities Exam Extremities exam: Present: warm, radial pulses palpable and symmetrical. Absent : calf tenderness, cyanotic, pedal edema - Neurological Exam Neurological exam: Present: alert, CN II-XII intact, oriented X3, no focal deficits. Absent: pronater drift, facial droop, speech deficit - Skin Skin exam: Present: dry, intact Internal Medicine: Result - Labs CBC & Chem 7: 11/21/16 04:06 11/21/16 04:06 Labs: Short CBC 11/21/16 Range/Units 04:06 WBC 8.0 (4.3-11.1) K/mcL Hgb 11.9 (11.5-15.4) g/dL Hct 36.5 (35.3-44.9) % Plt Count 178 (140-400) K/mcL Neutrophils # 5.1 (1.6-8.9) K/mcL BMP 11/21/16 04:06 Sodium 139 Potassium 3.5 Chloride 107 Carbon Dioxide 23 BUN 9 Creatinine 0.75 Glucose 81 Calcium 8.9 - VTE Documentation of Mechanical Device: Intermittent pneumatic compression device Consult Discharge Plan - Plan Referrals: Tong Cruz MD [Partnered Physician] - Diego Rangel CNP [Primary Care Provider] -
[2016-11-21] MEDS: Budesonide/Formoterol 80/4.5 MDI IH SCH ×2 (11:38→20:51)
[2016-11-21] MEDS: Ondansetron 4 MG/2 ML VIAL IVP PRN (12:46)
--- NOTE | 2016-11-22 07:40 | Urology Progress Note ---
Date of Encounter: 11/22/16 Time of Encounter: 07:38 - Assessment and Plan (1) UTI (urinary tract infection) Current Visit: Yes Status: Acute Assessment and plan: E coli and Enterococcus growing out. Continue antibiotics. Qualifiers: Urinary tract infection type: site unspecified Hematuria presence: with hematuria Qualified Code(s): N39.0 - Urinary tract infection, site not specified; R31.9 - Hematuria, unspecified (2) Ureterolithiasis Current Visit: Yes Status: Acute Assessment and plan: Postoperative day #5. 1. Will treat stones as an outpatient. Progress Note Narrative: 71-year-old woman status post right ureteral stent placement. Postoperative day #5. Enterococcus grew out. Doxycycline has been started. No fevers yesterday. Objective Initial Vital Signs Temp Pulse Resp BP Pulse Ox 99.2 F 103 20 134/117 93 11/17/16 16:51 11/17/16 16:51 11/17/16 16:51 11/17/16 16:51 11/17/16 16:51 - General physical appearance Present: well developed, well nourished, no distress - Respiratory Present: normal respiratory effort - Abdomen Present: soft - Labs 11/21/16 04:06 11/21/16 04:06 - VTE Documentation of Mechanical Device: Intermittent pneumatic compression device Consult Discharge Plan - Plan Referrals: Tong Cruz MD [Partnered Physician] - Diego Rangel CNP [Primary Care Provider] -
[2016-11-22] MEDS: Budesonide/Formoterol 80/4.5 MDI IH SCH (07:45)
[2016-11-22] MEDS: Isosorbide MONOnitrate (24 HR) 30 MG TAB.ER.24H PO SCH (08:59)
[2016-11-22] MEDS: Doxycycline 100 MG CAPSULE PO SCH (08:59)
--- NOTE | 2016-11-22 09:06 | Discharge Summary ---
<Meir Salgado T - Last Filed: 11/22/16 14:22> Date of Encounter: 11/22/16 - Discharge Diagnosis (1) Sepsis Status: Acute Qualifiers: Sepsis type: Escherichia coli Qualified Code(s): A41.51 - Sepsis due to Escherichia coli [E. coli] (2) Pyelonephritis Status: Acute (3) Recurrent nephrolithiasis Status: Acute (4) Ureterolithiasis Status: Acute (5) Acute hyperkalemia Status: Resolved - Discharge Medications Prescriptions: Ondansetron [Zofran ODT] 8 mg SL Q6HR #5 tab.rapdis Cefdinir [Omnicef] 300 mg PO BID #20 capsule Doxycycline 100 mg PO BID #26 Home Medications: Montelukast [Singulair] 10 mg PO HS 10/17/14 [History] Albuterol Sulfate [Ventolin Hfa] 1 puff IH Q6H PRN 05/04/15 [History] Ergocalciferol (VITAMIN D2) [Drisdol (50,000 Unit)] 50,000 unit PO SA 05/03/16 [ History] Levothyroxine Sodium 112 mcg PO QAM 05/03/16 [History] Fluticasone/Salmeterol [Advair 250-50 Diskus] 1 each IH BID #1 blst.w.dev [Rx] HYDROcodone/Acet 5/325 mg [Clyo 5-325 mg] 1 tab PO Q6H PRN 11/17/16 [History] Isosorbide MONOnitrate (24 HR) [Imdur] 30 mg PO DAILY 11/17/16 [History] traZODone [TraZODone] 50 mg PO HS 11/17/16 [History] Cefdinir [Omnicef] 300 mg PO BID #20 capsule 11/22/16 [Rx] Doxycycline 100 mg PO BID #26 11/22/16 [Rx] Ondansetron [Zofran ODT] 8 mg SL Q6HR #5 tab.rapdis 11/22/16 [Rx] Allergies/Adverse Reactions: 3 Allergy/AdvReac Type Severity Reaction Status Date / Time cephalexin [From Keflex] Allergy Hives Verified 03/01/16 07:34 codeine Allergy Hives Verified 12/19/16 07:34 Sulfa (Sulfonamide Allergy Hives Verified 03/01/16 07:34 Antibiotics) levofloxacin [From Levaquin] AdvReac Nausea Verified 03/01/16 07:34 nitrofurantoin AdvReac Nausea Verified 05/02/16 19:59 [From Macrobid] Date of admission: 11/17/16 21:30 Primary care physician: Diego Rangel CNP - Patient Status Disposition: Home, Self-Care Condition: Good - Discharge Instructions Instructions: Doxycycline (By mouth), Ondansetron (By mouth), Cefdinir (By mouth), Acute Pyelonephritis (DC) Follow Up With: Mary Hameed DO [Resident] - 11/29/16 4:00 pm Tong Cruz MD [Partnered Physician] - 11/25/16 9:30 am Additional Instructions: Follow-up with Dr. Cruz the Urologist outpatient for kidney stones within the next 7 days. Follow-up with your primary care physician within the next 1-2 weeks for hospital follow-up. Return if symptoms worsen or new symptoms arise. Hospital course: Ms. Dewey is a 71 year old female - Time Spent with Patient Total time spent providing and/or coordinating discharge services: - Constitutional Vitals: Temp Pulse Resp BP Pulse Ox 98.1 F 105 18 120/78 94 11/22/16 10:43 11/22/16 10:43 11/22/16 10:43 11/22/16 10:43 11/22/16 10:43 - Attending Attestation I have independently seen and examined this patient on 11/22/16. I have reviewed the EMR. Plan of management has been discussed with the patient and resident. She was admitted and managed for management of sepsis seconadary to Emphysematous pyelonephritis from E.Coli, ans enterococcus She is s/p R ureteral placement for her obstructing R ureterolithiasis She has been afebrile for >24 hrs Her leukocytosis has resolved Her urine cultures gre E.coli 1, E.Coli 2 and Enterococcus, sensitive to ceftriaxone and Doxycycline respectively. The patient denies any complains this morning She is stable to be discharged home on same antibiotics Physical exam: Febrile, not in distress, HEENT: Moist oral mucosa, Chest is CTAB , Heart sounds S1, S2 only, no m/g/r, Abdomen is benign. CVA tenderness resolved. No pedal edema. No skin rash. Labs and Imaging reviewed: CBC and Chem WNL A/P: Sepsis secondary to Emphysematous Pyelonephritis, R obstructing Ureterolithiasis , Resolved. Safe to discharge patient home on doxycycline and Omnicef bid to complete 14 days of antibiotics therapy Follow up with Urology for stone removal. Patient agrees with plan Rest of details as in resident physician's documentation <YosephMary - Last Filed: 11/22/16 20:54> Date of Encounter: 11/22/16 Time of Encounter: 10:10 - Discharge Diagnosis (1) Recurrent nephrolithiasis Priority: Primary Status: Acute (2) Acute hyperkalemia Priority: Primary Status: Resolved (3) Sepsis Priority: Primary Status: Acute Qualifiers: Sepsis type: Escherichia coli Qualified Code(s): A41.51 - Sepsis due to Escherichia coli [E. coli] (4) Pyelonephritis Priority: Primary Status: Acute Date of admission: 11/17/16 21:30 Primary care physician: Diego Rangel CNP - Patient Status Functional capacity at discharge: independent ambulation Overall status at discharge: patient is progressing back to baseline - Diet and Activity Activity: increase activity as tolerated Diet: advance to your usual diet Hospital course: Ms. Dewey is a 71 year old female past medical history of recurrent UTIs and nephrolithiasis with 3 lithotripsies, and 1 extraction with basket presented to the ED with right flank pain and fevers and was admitted for sepsis 2/2 emphysematous pyelonephritis on the right, and a 9 mm nephrolithiasis obstruction. Urology was consulted and stent was placed on 11/18. Cultures showed two colonies of e. coli and entercoccus. Patient was placed ceftriaxone 2g IV on 11/19 and tolerated well without itching/swelling and doxycycline 100mg BID PO added 11/21 as sensitivities returned. Patient clinically improved with a resolved leukocytosis and became afebrile for 36 hrs prior to leaving the hospital. Patient was discharged with Omnicef 300mg BID for 10 days and Doxycycline 100mg BID for 13 days. Patient was given an appointment to follow- up with primary care physician in 1-2 weeks for hospital f/u and urology for definitive ureteroscopic stone extraction as an outpatient in 1-2 weeks. - Time Spent with Patient Total time spent providing and/or coordinating discharge services: - Constitutional Vitals: Temp Pulse Resp BP Pulse Ox 98.1 F 63 18 137/83 95 11/22/16 06:45 11/22/16 06:45 11/22/16 07:46 11/22/16 06:45 11/22/16 07:46 General appearance: Present: A&O X 3, pleasant, no acute distress Exam: Constitutional: Alert, in no acute distress, well nourished, well developed. Head: Normocephalic, atraumatic, normal contour and symmetric, no masses, lesions or scars Heart: Normal, regular rate and rhythm, no murmurs Lungs: Clear to auscultation, no wheezes, rales, or rhonchi Abdomen: + CVA tenderness Soft, nondistended, and no masses palpable, bowel sounds present and normal, no guarding or rigidity. Extremities: IPCD on calfs, No clubbing, cyanosis, or edema, radial pulse +2/4 , capillary refill <2sec. Skin: Skin warm and dry, no lesions, no rashes, no jaundice Neurologic: Cranial nerves II through XII grossly intact, no focal deficits, strength within normal limits in all extremities Psych: Cooperative with exam, good eye contact, cognitive function intact, judgment good insight good, speech clear, thought process logical, and goal directed - VTE Documentation of Mechanical Device: Intermittent pneumatic compression device
[2016-11-22] MEDS ORDERED: Cefdinir 300 MG CAPSULE PO SCH (09:45)
[2016-11-22 10:48] VITALS: BP 120/78
== END 2016-11-22 12:29 | disposition home or self-care (01) | DRG 872 ==
LOC: EMEROO 16:50 → 3ANU 16:50 → SUATTDRO 21:30
PROVIDERS: ADMIT Urology; ATTEND Internal Medicine

== ENCOUNTER 2019-01-07 17:22 | Observation (INO) ==
[2019-01-07] MEDS ORDERED: Naloxone 0.4 MG/ML INJ IVP PRN (19:40)
[2019-01-07] MEDS ORDERED: 0.9 % Sodium Chloride 1,000 ML IVC SCH (19:45)
[2019-01-07] MEDS ORDERED: Ketorolac 15 MG/ML VIAL IVP PRN (19:47)
[2019-01-07] MEDS ORDERED: Ondansetron 4 MG/2 ML VIAL IM ONE (20:31)
[2019-01-07] MEDS ORDERED: *HR* Promethazine 25 MG/ML VIAL IVP PRN (20:58)
[2019-01-07] MEDS ORDERED: Morphine Sulfate 2 MG/ML SYRINGE IVP PRN (20:59)
[2019-01-07] MEDS ORDERED: Ondansetron 4 MG/2 ML VIAL IVP ONE (21:05)
[2019-01-07] MEDS: *HR* Heparin 5,000 UNIT/ML VIAL SQ SCH (22:12)
[2019-01-08] MEDS: *HR* Heparin 5,000 UNIT/ML VIAL SQ SCH ×3 (05:32→21:04)
[2019-01-08 05:57] LABS: Immature Granulocytes % 2.9 % (0-4); Mean Corpuscular Hemoglobin 31.6 pg (28.0-33.3); Mean Platelet Volume 9.8 fL (9.4-12.4); Red Cell Distribution Width 13.2 % (11.5-14.5)
[2019-01-08 05:59] LABS: Basophils # 0.1 K/mcL (0.0-0.2); Basophils % 0.2 %; Hematocrit 40.1 % (35.3-44.9); Hemoglobin 13.1 g/dL (11.5-15.4); Lymphocytes # 0.6 K/mcL (0.6-4.6); Lymphocytes % 1.9 %; Mean Corpuscular HGB Conc 32.7 g/dL (31.6-35.5); Mean Corpuscular Volume 96.9 fL (83.0-100.0); Monocytes # 1.4 K/mcL (0.0-1.3); Monocytes % 4.5 %; Neutrophils # 28.5 K/mcL (1.6-8.9); Platelet Count 170 K/mcL (140-400); Red Blood Count 4.14 M/mcL (3.82-4.97); Segmented Neutrophils % 90.5 %
[2019-01-08 06:05] LABS: Prothrombin Time 11.9 Seconds (9.4-12.1)
[2019-01-08 06:17] LABS: Albumin 3.5 g/dL (3.5-5.7); Albumin/Globulin Ratio 1.6 (1.1-2.2); Bilirubin,Total 0.6 mg/dL (0.3-1.0); Calcium 8.4 mg/dL (8.6-10.3); Globulin 2.2 g/dL (2.4-3.5); Potassium 4.2 mEq/L (3.5-5.1); Total Protein 5.7 g/dL (6.4-8.9)
[2019-01-08 06:20] LABS: White Blood Count 31.5 K/mcL (4.3-11.1)
[2019-01-08] MEDS ORDERED: Ondansetron 4 MG/2 ML VIAL ONE (10:31)
[2019-01-08] MEDS ORDERED: Lidocaine -MPF 2% 2 ML VIAL ONE (10:31)
[2019-01-08] MEDS ORDERED: *HR* FentaNYL (PF) 100 MCG/2 ML VIAL ONE (10:31)
[2019-01-08] MEDS ORDERED: *HR* Propofol 200 MG/20 ML VIAL IVP ONE ×2 (10:31→11:38)
[2019-01-08] MEDS ORDERED: traMADol 50 MG TABLET PO PRN (10:33)
[2019-01-08] MEDS ORDERED: *HR* Promethazine 25 MG/ML VIAL IVP PRN ×2 (10:33→13:11)
[2019-01-08] MEDS ORDERED: *HR* OxyCODONE/APAP 5/325 TABLET PO PRN (10:33)
[2019-01-08] MEDS ORDERED: Propofol 500 MG/50 ML INFUS..BTL ONE (10:38)
[2019-01-08] MEDS ORDERED: Ringers Solution, Lactated 1,000 ML IVC SCH (10:45)
[2019-01-08] MEDS ORDERED: Isovue-300 50ML VIAL ONE (10:57)
[2019-01-08] MEDS ORDERED: Dexamethasone 4 MG/ML VIAL ONE (11:50)
[2019-01-08] MEDS ORDERED: Ketorolac 15 MG/ML VIAL IVP PRN (13:11)
[2019-01-08] MEDS ORDERED: Naloxone 0.4 MG/ML INJ IVP PRN (13:11)
[2019-01-08] MEDS: Ertapenem 1,000 MG in 0.9 % Sodium Chloride Mini Bag 100 ML IVPB SCH (17:50)
[2019-01-08] MEDS: 0.9 % Sodium Chloride 1,000 ML IVC SCH (17:51)
[2019-01-08] MEDS: Budesonide/Formoterol 160/4.5 1 PUFF INH IH SCH (20:17)
[2019-01-09] MEDS: 0.9 % Sodium Chloride 1,000 ML IVC SCH ×3 (00:21→22:02)
[2019-01-09] MEDS: *HR* Heparin 5,000 UNIT/ML VIAL SQ SCH ×3 (05:41→19:49)
[2019-01-09 07:02] LABS: Basophils % 0.1 %; Hematocrit 36.3 % (35.3-44.9); Hemoglobin 11.8 g/dL (11.5-15.4); Immature Granulocytes % 0.9 % (0-4); Lymphocytes # 1.2 K/mcL (0.6-4.6); Lymphocytes % 5.8 %; Mean Corpuscular HGB Conc 32.5 g/dL (31.6-35.5); Mean Corpuscular Hemoglobin 31.6 pg (28.0-33.3); Mean Corpuscular Volume 97.1 fL (83.0-100.0); Mean Platelet Volume 10.3 fL (9.4-12.4); Monocytes # 0.9 K/mcL (0.0-1.3); Monocytes % 4.4 %; Neutrophils # 17.9 K/mcL (1.6-8.9); Platelet Count 151 K/mcL (140-400); Red Blood Count 3.74 M/mcL (3.82-4.97); Red Cell Distribution Width 13.3 % (11.5-14.5); Segmented Neutrophils % 88.8 %; White Blood Count 20.2 K/mcL (4.3-11.1)
[2019-01-09] MEDS: Budesonide/Formoterol 160/4.5 1 PUFF INH IH SCH ×2 (07:37→20:27)
[2019-01-09 08:02] LABS: BUN/Creatinine Ratio 24 (6-26); Blood Urea Nitrogen 23 mg/dL (8-23); Calcium 8.7 mg/dL (8.6-10.3); Carbon Dioxide 21 mEq/L (23-29); Chloride 110 mEq/L (98-107); Glucose 113 mg/dL (70-105); Magnesium 1.9 mg/dL (1.6-2.6); Osmolality,Calculated 294 (280-300); Phosphorous 2.5 mg/dL (2.7-4.5); Potassium 4.4 mEq/L (3.5-5.1); Sodium 140 mEq/L (136-145); eGFR For African Americans > 60 (> 60); eGFR For Non-African Americans 59 (> 60)
[2019-01-09] MEDS: Ertapenem 1,000 MG in 0.9 % Sodium Chloride Mini Bag 100 ML IVPB SCH (09:36)
[2019-01-09] MEDS: Diltiazem CD (24hr) 120 MG CAPSULE PO SCH (09:36)
[2019-01-09] MEDS ORDERED: cefTRIAXone 2,000 MG in Water for inj. (sterile) 20 ML IVP SCH (16:00)
[2019-01-10 03:00] LABS: Basophils % 0.2 %; Eosinophils # 0.1 K/mcL (0.0-0.6); Eosinophils % 0.5 %; Hematocrit 35.4 % (35.3-44.9); Hemoglobin 11.4 g/dL (11.5-15.4); Immature Granulocytes % 0.3 % (0-4); Lymphocytes # 2.1 K/mcL (0.6-4.6); Lymphocytes % 15.8 %; Mean Corpuscular HGB Conc 32.2 g/dL (31.6-35.5); Mean Corpuscular Hemoglobin 31.1 pg (28.0-33.3); Mean Corpuscular Volume 96.5 fL (83.0-100.0); Mean Platelet Volume 10.6 fL (9.4-12.4); Monocytes # 0.7 K/mcL (0.0-1.3); Monocytes % 5.1 %; Neutrophils # 10.4 K/mcL (1.6-8.9); Platelet Count 152 K/mcL (140-400); Red Blood Count 3.67 M/mcL (3.82-4.97); Red Cell Distribution Width 13.2 % (11.5-14.5); Segmented Neutrophils % 78.1 %; White Blood Count 13.3 K/mcL (4.3-11.1)
[2019-01-10] MEDS: 0.9 % Sodium Chloride 1,000 ML IVC SCH (03:11)
[2019-01-10 03:18] LABS: BUN/Creatinine Ratio 25 (6-26); Blood Urea Nitrogen 21 mg/dL (8-23); Calcium 8.4 mg/dL (8.6-10.3); Carbon Dioxide 20 mEq/L (23-29); Chloride 112 mEq/L (98-107); Glucose 87 mg/dL (70-105); Magnesium 1.7 mg/dL (1.6-2.6); Osmolality,Calculated 292 (280-300); Phosphorous 2.1 mg/dL (2.7-4.5); Potassium 3.9 mEq/L (3.5-5.1); Sodium 140 mEq/L (136-145); eGFR For African Americans > 60 (> 60); eGFR For Non-African Americans > 60 (> 60)
[2019-01-10] MEDS: *HR* Heparin 5,000 UNIT/ML VIAL SQ SCH (06:32)
[2019-01-10] MEDS: Budesonide/Formoterol 160/4.5 1 PUFF INH IH SCH (07:58)
[2019-01-10] MEDS ORDERED: Potassium Phosphate 44 MEQ in 0.9 % Sodium Chloride 250 ML IVPB ONE (08:07)
[2019-01-10] MEDS: Diltiazem CD (24hr) 120 MG CAPSULE PO SCH (08:45)
[2019-01-10 10:50] VITALS: BP 153/76
== END 2019-01-10 15:04 | disposition home or self-care (01) ==
LOC: 3ANU → SUATTDRO 19:22
PROVIDERS: ADMIT Student in an Organized Health Care Education/Training Program; ATTEND Internal Medicine